=== PATIENT | female | born 1970 | race Caucasian/White ===

== ENCOUNTER 2021-10-16 09:00 | Outpatient (CLI) | payer OTHER, SELFPAY ==
[2021-10-16 14:27] LABS: Chloride* 103 mmol/L (96-114)
[2021-10-16 14:28] LABS: Potassium* 4.3 mmol/L (3.6-5.1); Sodium* 138 mmol/L (135-149)
[2021-10-16 14:30] LABS: Carbon Dioxide* 27 mmol/L (20-32); Creatinine* 0.8 mg/dL (0.5-1.5); Estimated Glomerular Filt Rate 88 ml/min
[2021-10-16 14:31] LABS: Blood Urea Nitrogen* 11 mg/dL (7-30); Glucose* 99 mg/dL (60-115)
== END 2021-10-16 09:01 | disposition home or self-care (01) ==
LOC: LONREF 09:02
PROVIDERS: PCP Family Medicine; Visit Provider Family Medicine
DX: Z01.818 Encounter for other preprocedural examination (principal)
CPT/HCPCS: 80048

== ENCOUNTER 2022-01-09 08:07 | Outpatient (CLI) | payer OTHER, SELFPAY ==
--- OUTSIDE RECORDS SUMMARY | 2022-01-09 08:09 | XMS_ITS | Encounter Summary ---
:1970 Author Care Team Providers Name Role Phone Kobi Zavaleta MD Primary Care Provider [phone] Reason for Visit Incontinence Assessment and Plan 1. Incontinence fu in 2 months on her stress incontinen ce Discussion Note: None recorded.Patient educational handouts: No information available. Plan of Care Reminders Provider Appointments Post Op 10 01/22/2022 10:50AM Robbi sanchez MD Lab None recorded. ? ? Referral None recorded. ? ? Procedures None recorded. ? ? Surgeries None recorded. ? ? Imaging None recorded. ? ? Medications Name Start Date ? ? albuterol sulfate HFA 90 mcg/actuation aerosol inhaler ? INHALE TWO PUFFS BY MOUTH EVERY 6 HOURS NEEDED atorvastatin 10 mg tablet ? TAKE ONE TABLET BY MOUTH AT BEDTIME citalopram 20 mg tablet ? TAKE ONE TABLET BY MOUTH EVERY DAY finasteride 5 mg tablet ? TAKE 1.25MG (1/4 TABLET) BY MOUTH DAILY Flovent HFA 110 mcg/actuation aerosol inhaler ? INHALE TWO PUFFS BY MOUTH TWICE A DAY levothyroxine 100 mcg tablet ? TAKE 1 TABLET BY MOUTH DAILY levothyroxine 112 mcg tablet ? TAKE ONE TABLET BY MOUTH EVERY DAY Norlyda 0.35 mg tablet ? TAKE 1 TABLET BY MOUTH DAILY prednisone 10 mg tablet ? TAKE 4 TABLETS BY MOUTH ONCE DAILY FOR 3 DAYS THEN 3 TABLETS ONCE DAILY FOR 3 DAYS, THEN 2 TABS ONCE DAILY FOR 3 DAYS AND 1 TABLET ONCE DAILY FOR 3 DAYS Medications Administered None recorded. Vitals None recorded. Results Lab Results None recorded. Allergies Code Code System Name Reaction Severity Onset 188937 RxNorm Minocin ? ? ? Problems Name Status Onset Date Source ? Incontinence Active 06/12/2021 ? Procedures Date Name Performed by ? ? Partial Hysterectomy Information not karen ilable Vaccine List None recorded. Social History Tobacco Smoking Status Former Smoker What was the date of your most recent tobacco 11/27/2021 screening? What is your level of alcohol consumption? Moderate Do you or have you ever used any other forms of N tobacco or nicotine? What is your level of caffeine consumption? Moderate Do you use any illicit or recreational drugs? N When did you quit smoking? 16+yearssincelastcigarette Family History Relation Problem Onset Age of Age Notes Unspecified Relation Family history of (No Information) N/A (No Notes) prostate cancer Functional Status Unknown. Past Encounters 11/27/2021 Incontinence Robbi Quarles MD: [address] [place] [phone], Ph. History of Present Illness Note: <div>50 YO Female here for postop evaluation</div><div>S/p retropubic midurethralsling 10/26/21; some urgency; once a day; no pads. </div><div>
</div><div>Prior to surgery</div><div>Frequency every 30- 60</div><div>Using 2-3 pads per day</div><div>
</div><div>s/p supracervical hysterectomy 2006</div><div>
</div><div>former smoker</div><div>
</div><div>PVR is minin </div><div>Pelvic exam is benign</div> Review of Systems ? Comprehensive General Adult ROS Reported By: Patient Constitutional: Constitutional: no fever, no chills Eyes: Eyes: no dry eyes, no vision change, no irritation Endocrine: Endocrine: no fatigue, no in creased thirst Cardiovascular: Cardiovascular: no chest trinidad n, no palpitations Integumentary: Skin: no rashes, no change i n skin color Respiratory: Respiratory: no wheezing, no cough, no shortness of breath Genitourinary: Genitourinary: no incontinen ce, no difficulty urinating Physical Exam None recorded.
--- OUTSIDE RECORDS SUMMARY | 2022-01-09 08:09 | XMS_ITS ---
:1970 Author Care Team Providers Name Role Phone LUIS MURRAY MD Primary Care Provider [phone] Allergies Code Code System Name Reaction Severity Status Onset 325841 RxNorm Minocin ? ? Active ? Medications Name Status Start Date Stop Date ? ? albuterol sulfate HFA 90 mcg/actuation aerosol inhaler Active ? Not available INHALE TWO PUFFS BY MOUTH EVERY 6 HOURS NEEDED atorvastatin 10 mg tablet Active ? Not av ailable TAKE ONE TABLET BY MOUTH AT BEDTIME citalopram 20 mg tablet Active ? Not avai lable TAKE ONE TABLET BY MOUTH EVERY DAY finasteride 5 mg tablet Active ? Not avai lable TAKE 1.25MG (1/4 TABLET) BY MOUTH DAILY Flovent HFA 110 mcg/actuation aerosol inhaler Active ? Not available INHALE TWO PUFFS BY MOUTH TWICE A DAY levothyroxine 100 mcg tablet Active ? Not available TAKE 1 TABLET BY MOUTH DAILY levothyroxine 112 mcg tablet Active ? Not available TAKE ONE TABLET BY MOUTH EVERY DAY Norlyda 0.35 mg tablet Active ? Not avail able TAKE 1 TABLET BY MOUTH DAILY prednisone 10 mg tablet Active ? Not avai lable TAKE 4 TABLETS BY MOUTH ONCE DAILY FOR 3 DAYS THEN 3 TABLETS ONCE DAILY FOR 3 DAYS, THEN 2 TABS ONCE DAILY FOR 3 DAYS AND 1 TABLET ONCE DAILY FOR 3 DAYS Problems Name Status Onset Date Source ? Incontinence Active 06/12/2021 ? Procedures Date Name Performed by ? ? Partial Hysterectomy Information not karen ilable Results Lab Results Date Name Specimen Result Interpretation Description Value Range Status Address ? 06/12/2021 Urinalysis, Dipstick ? Color-Status Yellow ? Clarity-Status Clear ? Glucose-Status 1000 ? Bilirubin-Status Negative ? Ketones-Status Negative ? Sp [place]-Status 1.020 ? pH-Status 5.0 ? Urobilinogen-Status 0.2 ? Nitrates-Status negative ? Blood-Status Trace ? Leuko-Status Negative ? Specimen Type Voided ? ? 06/12/2021 Urinalysis, Dipstick ? No observation ? ? ? recorded. Past Encounters 11/27/2021 Incontinence Robbi Quarles MD: [address] [place] [address], Ph. 06/12/2021 Urinary Incontinence; Female Stress Inco ntinence Robbi Quarles MD: [address] [place] [address], Ph. Social History Tobacco Smoking Status Former Smoker Vaccine List None recorded. Plan of Care Reminders Provider Appointments None recorded. ? ? Lab None recorded. ? ? Referral None recorded. ? ? Procedures None recorded. ? ? Surgeries None recorded. ? ? Imaging None recorded. ? ? Vitals None recorded.
--- NOTE | 2022-01-09 08:15 | CRLHL7_ITS ---
For Patients: As a result of the Century Cures Act, medical imaging exams and procedure reports are released immediately into your electronic medical record. You may view this report before your referring provider. If you have questions, please contact your health care provider. BILATERAL SCREENING MAMMOGRAM WITH COMPUTER-AIDED DETECTION TECHNIQUE: CC and MLO views were obtained. These mammographic images have been obtained using full-field digital technique. These mammographic images were interpreted with the benefit of computer-aided detection. COMPARISON FILM: 11/17/20, 05/29/18, 01/29/16. FINDINGS: The breasts are heterogeneously dense, which may obscure small masses. IMPRESSION: There is no radiographic evidence for malignancy. ASSESSMENT: BI-RADS Category 2: Benign RECOMMENDATION: Routine screening mammogram in 1 year. A lay language report of this examination will be provided to the patient. AMARI SINGER M.D. Diagnostic/Nuclear Medicine Radiologist [email or web address] HWITNEY:collin Transcribed: 2:09 p.mPamela polanco/Dictated by: Amari Singer MD @ 01/09/2022 9:42:00 AM (Electronically Signed)
== END 2022-01-09 08:08 | disposition home or self-care (01) ==
PROVIDERS: PCP Family Medicine; Visit Provider Family Medicine
DX: Z12.31 Encounter for screening mammogram for malignant neoplasm of breast (principal); R92.2 Inconclusive mammogram
CPT/HCPCS: 77063; 77067

== ENCOUNTER 2022-11-27 08:40 | Outpatient (CLI) | payer OTHER, SELFPAY | END 2022-11-27 08:41 | disposition home or self-care (01) | PROVIDERS: PCP Family Medicine; Visit Provider Family Medicine | DX: Z00.00 Encounter for general adult medical examination without abnormal findings (principal); E78.5 Hyperlipidemia, unspecified; E03.9 Hypothyroidism, unspecified; L65.9 Nonscarring hair loss, unspecified; Z13.1 Encounter for screening for diabetes mellitus | CPT/HCPCS: 80048; 80061; 84443 ==

== ENCOUNTER 2023-03-25 15:58 | Outpatient (CLI) | payer OTHER, SELFPAY ==
--- OUTSIDE RECORDS SUMMARY | 2023-03-25 16:02 | XMS_ITS | Clinical Summary ---
Author Name Unknown Organization [facility] Address [place], [place] [address] Care Team Providers Care Thermostat Repairer Name Role Phone Kobi Zavaleta MD Primary Care Provider [phone] Allergies Active Allergy Reactions Criticality Noted Date Comments Minocycline *Unknown 10/26/2021 Medications Medication Sig Dispensed Refills Start Date End Date Status CITALOPRAM 10 MG TAB take 1 tablet (10mg) by oral route once daily 0 06/05/2006 Active CLARINEX 5 MG TAB take 1 tablet (5mg) by oral route once daily 0 06/05/2006 Active ADVAIR DISKUS 100 MCG-50 MCG/DOSE FOR INHALATION inhale 1 puff by inhalation route 2 times per day morning and evening approximately 12 hours apart 0 06/05/2006 Active FLONASE 50 MCG/ACTUATION NASAL SPRAY AEROSOL inhale 1 spray in each nostril by nasal route once daily 0 06/05/2006 Active ALBUTEROL 90 MCG/ACTUATION INHL AERO (ALLSCRIPTS) prn 0 06/05/2006 Active IBUPROFEN 200 MG TAB 600-800 twice day 0 06/05/2006 Active cyclobenzaprine (FLEXERIL) 10 mg tablet Take 1 tablet by mouth 3 times daily. 30 tablet 0 04/15/2014 Active traMADol (ULTRAM) 50 mg tablet Take 1 tablet by mouth every 6 hours if needed for Pain. 30 tablet 1 04/15/2014 Active albuterol (PROVENTIL) 0.083 % neb solutionIndication s:Bronchitis Inhale 3 mL via a nebulizer every 6 hours if needed for Shortness Of Breath. 1 box 0 11/22/2014 Active albuterol HFA (PROAIR HFA) 90 mcg/actuation inhalerIndications :Bronchitis Inhale 2 Puffs by mouth every 4 hours if needed. 1 Inhaler 0 11/22/2014 Active predniSONE (DELTASONE) 20 mg tabletIndications: Bronchitis Take 2 tablets by mouth once daily with a meal. 10 tablet 0 11/22/2014 Active oxyCODONE (ROXICODONE) 5 mg immediate release tablet Take 1 tablet (5mg) by mouth every 8 hours as needed for pain. 18 Tablet 0 10/26/2021 Active cephalexin (KEFLEX) 500 mg capsule Take 1 capsule (500mg) by mouth every 8 hours until gone.(3 doses) 3 Capsule 0 10/26/2021 Active estradioL (Estrace) 0.01% (0.1 mg/g) vaginal cream Use a pea sized amount on finger to Insert into the vagina at bedtime for 1 month. 42.5 g 0 10/26/2021 Active Active Problems Problem Noted Date Diagnosed Date S/P R shoulder extensive GH Debridement, SAD, AC, Coracoid decompression, DOS 11/02/2013 11/12/2013 Impingement syndrome of right shoulder 4 Left shoulder arthroscopic S AD, LUCA joint resectin, coracoid decompression: 09/08/12 by George Osuna MD 12/25/2012 s/p Left shoulder CHELITA, LUCA, CD 09/08/12 09/18/2012 Partial tear of rotator cuff left 07/30/2012 Rotator cuff syndrome of left shoulder 3 Enthesopathy of ankle and tarsus, unspecified Family History Medical History Relation Name Comments Hypertension Brother 3 Hypertension Brother 4 Hyperlipidemia Brother 5 Hyperlipidemia Brother 6 Diabetes Father Other Mother renal failure Relation Name Status Comments Brother 1 Alive Brother 2 Alive Brother 3 Brother 4 Brother 5 Brother 6 Father Alive Mother Alive Social History Tobacco Use Types Packs/Day Years Used Date Smoking Tobacco: Every Day Cigarettes Alcohol Use Standard Drinks/Week Comments Yes 0 (1 standard drink = 0.6 oz pur e alcohol) Sex and Gender Information Value Date Recorded Sex Assigned at Not on file Gender Identity Not on file Sexual Orientation Not on file Obstetrics History Last Filed Vital Signs Vital Sign Reading Time Taken Comments Blood Pressure 118/70 11/22/2014 12:43 PM CDT Pulse 116 11/22/2014 12:43 PM CDT Temperature 36.2 ??C (97.2 ??F) 11/22/2014 12:43 PM C DT Respiratory Rate 24 11/22/2014 12:43 PM CDT Oxygen Saturation 97% 11/22/2014 12:43 PM CDT Inhaled Oxygen Concentration - - Weight 77.1 kg (170 lb) 11/12/2013 8:11 AM CDT Height 154.9 cm (5' 0.98) 11/12/2013 8:11 AM CD T Body Mass Index 32.14 11/12/2013 8:11 AM CDT Plan of Treatment Health Maintenance Due Date Last Done Comments Tdap 10/11/1979 Depression screening for age 12+ 1980 HIV for age 15-65 10/11/1983 BMI (ht and wt on same day) for age 18+ 1986 Hepatitis C screening for ag e 18-79 1986 Tetanus booster 1988 Colonoscopy through age 75 2013 Lipids for age 45-75 2013 Mammogram for age 45-75 2013 Zoster (shingles) series for age 50+ (1 of 2) 2018 Pap test for age 21-65 06/19/2021 9, 06/19/2018, 01/06/2015 COVID-19 vaccine series (2 - 2022- season) 2022 11/08/2020 Influenza for age 50-64 10/11/2022 Pneumococcal series for age 6-64 Aged Out No longer eligible b ased on patient's age to complete this topic Care Teams Thermostat Repairer Relationship Specialty Start Date End Date Kobi Zavaleta MD PCP - General Family Practice 04/03/12
--- OUTSIDE RECORDS SUMMARY | 2023-03-25 16:02 | XMS_ITS | Data Portability ---
Author Name Unknown Address [address] [place] [address] Phone [phone] Organization [facility], [facility] Address [address] [place] [address] Care Team Providers Care Group Burner Machine Name Role Phone LUIS MURRAY Primary Care Provider Assessment No assessment recorded. Plan of Treatment Reminders Order Date Submit Date Provider Last Modified By Organization Details Last Modified Time Details Appointments None recorded. Lab urinalysis, dipstick 2021 022 [email or web address] Not available 09:56:54 Referral None recorded. Procedures None recorded. Surgeries midurethral sling (SURG) 2021 022 [email or web address] Not available 11:28:10 Imaging None recorded. Medication Orders None recorded. Patient TargetsNo targets recorded. Patient InstructionsNo instructions recorded. Reason for Referral None Reported. Results Created Date Observation Date Name Description Value Unit Range Abnormal Flag LastModifiedBy Organization Detail LastModifiedTime 06/13/1906/12/2021 urina lysis , dipst ick Color-Status Yellow Not Available [facility] [address], [place], [address], 06/12/2021 09:56:00 06/13/19 22 06/12/2021 urina lysis , dipst ick Clarity-Stat us Clear Not Available [facility] [address], [place], [address], 06/12/2021 09:56:00 06/13/19 22 06/12/2021 urina lysis , dipst ick Glucose-Stat us 1000 Not Available [facility] [address], [place], [address], 06/12/2021 09:56:00 06/13/19 22 06/12/2021 urina lysis , dipst ick Bilirubin-St atus Negati ve Not Available [facility] [address], [place], [address], 06/12/2021 09:56:00 06/13/19 22 06/12/2021 urina lysis , dipst ick Ketones-Stat us Negati ve Not Available [facility] [address], [place], [address], 06/12/2021 09:56:00 06/13/19 22 06/12/2021 urina lysis , dipst ick Sp Lemhi-Stat us 1.020 Not Available [facility] [address], [place], [address], 06/12/2021 09:56:00 06/13/19 22 06/12/2021 urina lysis , dipst ick pH-Status 5.0 Not Available [facility] [address], [place], [address], 06/12/2021 09:56:00 06/13/19 22 06/12/2021 urina lysis , dipst ick Urobilinogen -Status 0.2 Not Available [facility] [address], [place], [address], 06/12/2021 09:56:00 06/13/19 22 06/12/2021 urina lysis , dipst ick Nitrates-Sta tus negati ve Not Available [facility] [address], [place], [address], 06/12/2021 09:56:00 06/13/19 22 06/12/2021 urina lysis , dipst ick Blood-Status Trace Not Available [facility] [address], [place], [address], 06/12/2021 09:56:00 06/13/19 22 06/12/2021 urina lysis , dipst ick Leuko-Status Negati ve Not Available [facility] [address], [place], [address], 06/12/2021 09:56:00 06/13/19 22 06/12/2021 urina lysis , dipst ick Specimen Type Voided Not Available [facility] [address], [place], [address], 06/12/2021 09:56:00 06/14/19 22 06/12/2021 bladd er scan (PROC ) No observ ation record ed. BARCODE Not Available 06/13/2021 09:01:54 11/29/19 22 11/27/2021 bladd er scan (PROC ) No observ ation record ed. BARCODE Not Available 11/28/2021 14:03:01 Result Notes None recorded. Problems Name Status Onset Date Resolution Date Notes Provider Name and Address Organization Details Recorded Time Incontinence Active Debbie fan [facility] 06/12/2021 10:02:05 Problem Notes None recorded. Procedures Surgical History Date Name Laterality Status Provider Name and Address Organization Details Recorded Time 11/28/19 22 Bladder Scan completed Desiree fan [facility] 11/27/2021 12:04:28 06/13/19 Bladder Scan completed Debbie fan [facility] 06/12/2021 10:03:47 Partial Hysterectomy completed Debbie fan [facility] 06/12/2021 10:03:12 Imaging Results Imaging Date Name Status LastModified by Organiz ation Details LastModified Time 06/12/2021 bladder scan (PROC) completed BARCODE Information not available 06/13/2021 09:01:54 11/27/2021 bladder scan (PROC) completed BARCODE Information not available 11/28/2021 14:03:01 Procedure Notes None recorded. Medical Equipment None Reported. Allergies Allergen ID Allergen Name Allergen Category Reaction Reaction Severity Criticality Documentation Date Start Date Code Code System Note Provider Name and Address Organization Details Recorded Time 601678 Minocin medicatio n Not available Not available Not available 06/12/2021 17646 6 RxNorm Debbie fan [facility] 10:01:56 Medications Name Sig Start Date Stop Date Status Note LastModified by Organization Details LastModified Time prednisone 10 mg tablet TAKE 4 TABLETS BY MOUTH ONCE DAILY FOR 3 DAYS THEN 3 TABLETS ONCE DAILY FOR 3 DAYS, THEN 2 TABS ONCE DAILY FOR 3 DAYS AND 1 TABLET ONCE DAILY FOR 3 DAYS active Not Available Not Available No t Available atorvastatin 10 mg tablet TAKE ONE TABLET BY MOUTH AT BEDTIME active Not Available Not Available No t Available levothyroxine 100 mcg tablet TAKE 1 TABLET BY MOUTH DAILY active Not Available Not Available No t Available citalopram 20 mg tablet TAKE ONE TABLET BY MOUTH EVERY DAY active Not Available Not Available No t Available albuterol sulfate HFA 90 mcg/actuation aerosol inhaler INHALE TWO PUFFS BY MOUTH EVERY 6 HOURS NEEDED active Not Available Not Available No t Available finasteride 5 mg tablet TAKE 1.25MG (1/4 TABLET) BY MOUTH DAILY active Not Available Not Available No t Available levothyroxine 112 mcg tablet TAKE ONE TABLET BY MOUTH EVERY DAY active Not Available Not Available No t Available Flovent HFA 110 mcg/actuation aerosol inhaler INHALE TWO PUFFS BY MOUTH TWICE A DAY active Not Available Not Available No t Available Norlyda 0.35 mg tablet TAKE 1 TABLET BY MOUTH DAILY active Not Available Not Available No t Available Vitals None Recorded Social History Question Answer Notes LastModified by Organizat ion Details LastModified Time Tobacco Smoking Status Former Smoker ENMANUEL Dimas [facility] 06/12/2021 10:02:39 What Is Your Level Of Alcohol Consumption? Moderate [email or web address] Information not available 06/12/2021 What Is Your Level Of Caffeine Consumption? Moderate [email or web address] Information not available 06/12/2021 When Did You Quit Smoking? 16+yearssince lastcigarette [email or web address] Information not available 06/12/2021 What Was The Date Of Your Most Recent Tobacco Screening? 11/27/2021 [email or web address] Information not available 11/27/2021 Do You Use Any Illicit Or Recreational Drugs? No [email or web address] Information not available 06/12/2021 Do You Or Have You Ever Used Any Other Forms Of Tobacco Or Nicotine? No [email or web address] Information not available 06/12/2021 Sex: Female Functional Status None recorded. Mental Status None recorded. Family History Relationship Description Onset Age of this Age Resolved Age Notes Unspecified Relation Family history of prostate cancer Medical History Condition Response Sexually Transmitted Infection N Diabetes N Other N Bleeding Disorder N High Blood Pressure N Kidney Stones N High Cholesterol N GERD/Acid Reflux Y Heart Disease N Cancer N Lung Disease Y Depression Y Gynecological HistoryNo gynecological history recorded. Obstetrics History GPAL:G 0 P 0 0 0 0 Past Encounters Encounter ID Performer Location Encounter Start Date Encounter Closed Date Diagnosis/Indication [id number] MD [facility] [address] [place] [address] 06/12/2021 09:47:04 06/13/2021 11:53:37 Urinary incontinence Female stress incontinence [id number] MD [facility] [address] [place] [address] 11/27/2021 11:53:44 12/03/2021 11:49:58 Incontinence Health Concerns Section Related Observation LastModified by Organization Detai ls LastModified Time None Recorded Concern Status LastModified by Organization Details LastModified Time None Recorded Advance Directives Directive None Recorded Payers Encounter Date Sequence Insurance Name Policy Number Policy Francisco Covered Member ID Francisco Member ID Guarantor Name 11/27/2021 1 PREFERREDONE (PPO) [id number] Svitlana Pham [id number] Svitlana Pham Notes Date Note Type Note Provider Name and Address Organization Details Recorded Time 06/12/2021 text/html HPI Notes: 50 YO Female patient here for evaluation for urinary incontinence. Started in her 30's, after having babies. Vaginal deliveries x2. Leakage with cough, sneeze, standing, jumping, side-shuffling, working out. Also some urge incontinence as well. Some feeling of incomplete voiding at times. No nocturia. No gross hematuria. No issues with recurrent UTIs. The leakage is most bothersome to her. Frequency every 30-60 Using 2-3 pads per day Has not trialed any medications for this. Has tried fluid restrictions, cutting back on caffeine, cutting back on alcohol, kegels-- no improvement. No constipation, diarrhea, fecal incontinence. 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 Robbi Quarles MD [address] [place] [address],[address], [address], [facility] 06/12/2021 13:53:49 11/27/2021 text/html HPI Notes: 50 YO Female here for postop evaluation S/p retropubic midurethral sling 10/26/21; some urgency; once a day; no pads. Prior to surgery Frequency every 30-60 Using 2-3 pads per day s/p supracervical hysterectomy 2006 former smoker PVR is minin Pelvic exam is benign oRbbi Quarles MD [address] [place] [address],[address], [place], [address], [facility] 11/27/2021 12:16:19 OBGyn Episode No OBEpisode recorded.
--- NOTE | 2023-03-25 16:45 | CT_ITS ---
Patient: TEMO CROW Facility:?[facility] Patient ID:?[id number] Site Patient ID:?[id number] Site :?[id number] Study:?CT-Sinus W/O-03/25/2023 4:17:07 PM Ordering Physician:?JACQUELINE Final Report: Indication: Chronic sinus disease Technique: Performed without IV contrast Comparison: None available Findings: Frontal sinuses: The frontal sinuses are diminutive on a congenital basis. Ethmoid sinuses: Postop changes of ethmoidectomy noted. Maxillary sinuses: Mucosal thickening is present within both maxillary sinuses. The maxillary sinus drainage pathways are patent on both sides. Sphenoid sinuses: Clear, including both sphenoethmoidal recesses. Nasal Cavity: Leftward curvature of the nasal septum is present. There are no nasal polyps. Postop changes are present. Slight paradoxical turn of the right middle turbinate. No TMJ abnormalities identified. The visualized portions of the orbits, intracranial contents and upper soft tissue neck are grossly negative. Impression: 1. Mild bilateral maxillary sinus disease 2. Postoperative changes. Leftward deviation of the nasal septum. No nasal polyps. Please note that all CT scans at this facility use dose modulation, iterative reconstruction, and/or weight-based dosing when appropriate to reduce radiation dose to as low as reasonably achievable. Dictated by Manolo Higuera MD @ 03/28/2023 5:59:07 AM Signed by:?Manolo Higuera MD @03/28/2023 5:59:07 AM (Electronic Signature)
== END 2023-03-25 15:59 | disposition home or self-care (01) ==
LOC: CT 15:59
PROVIDERS: PCP Family Medicine; Visit Provider Otolaryngology
DX: J32.9 Chronic sinusitis, unspecified (principal); J32.0 Chronic maxillary sinusitis; J34.2 Deviated nasal septum
CPT/HCPCS: 70486

== ENCOUNTER 2023-04-09 14:38 | Outpatient (CLI) | payer OTHER, SELFPAY ==
--- NOTE | 2023-04-09 15:00 | MM_ITS ---
Patient: TEMO CROW Facility:?[facility] Patient ID:?[id number] Site Patient ID:?[id number] Site :?1970 Study:?XRay-Breast Bilateral 3D W/CAD-04/09/2023 3:01:02 PM Ordering Physician:?Kobi Zavaleta Final Report: BILATERAL SCREENING MAMMOGRAM WITH COMPUTER-AIDED DETECTION AND TOMOSYNTHESIS TECHNIQUE: CC and MLO views were obtained. These mammographic images have been obtained using full-field digital technique. These mammographic images were interpreted with the benefit of computer-aided detection. Breast Tomosynthesis was used in this interpretation. COMPARISON FILM: 01/09/22, 11/17/20, 05/29/18. FINDINGS: The breasts are heterogeneously dense, which may obscure small masses. IMPRESSION: There is no radiographic evidence for malignancy. ASSESSMENT: BI-RADS Category 2: Benign RECOMMENDATION: Routine screening mammogram in 1 year. A lay language report of this examination will be provided to the patient. Manolo Higuera M.D. Diagnostic Radiologist [email or web address] DSM/sp R& Transcribed: 6:32 p.m. SP/Dictated by: Manolo Higuera MD @ 04/10/2023 9:48:00 AM Signed by:?Manolo Higuera MD @04/11/2023 5:37:15 AM (Electronic Signature)
== END 2023-04-09 14:39 | disposition home or self-care (01) ==
LOC: MAMMO 14:39
PROVIDERS: PCP Family Medicine; Visit Provider Family Medicine
DX: Z12.31 Encounter for screening mammogram for malignant neoplasm of breast (principal); R92.2 Inconclusive mammogram
CPT/HCPCS: 77063; 77067

== ENCOUNTER 2023-05-20 19:43 | Outpatient (CLI) | payer OTHER, SELFPAY ==
--- OUTSIDE RECORDS SUMMARY | 2023-05-20 19:45 | XMS_ITS | Data Portability ---
Author Name Unknown Address [address] [place] [address] Phone [phone] Organization [facility], [facility] Address [address] [place] [address] Care Team Providers Care Power Grader Operator Name Role Phone LUIS MURRAY Primary Care Provider [phone] Assessment No assessment recorded. Plan of Treatment Reminders Order Date Submit Date Provider Last Modified By Organization Details Last Modified Time Details Appointments None recorded. Lab urinalysis, dipstick 2021 022 [email or web address] Not available 09:56:54 Referral None recorded. Procedures [...] dipst ick Color-Status Yellow Not Available [facility] [address], [place], [address], 06/12/2021 09:56:00 06/13/19 22 06/12/2021 urina lysis , dipst ick Clarity-Stat us Clear Not Available [facility] [address], [place], [address], 06/12/2021 09:56:00 06/13/19 22 06/12/2021 urina lysis , dipst ick Glucose-Stat us 1000 Not Available [facility] [address], [place], [address], 06/12/2021 09:56:00 06/13/19 22 06/12/2021 urina lysis , dipst ick Bilirubin-St atus Negati ve Not Available [facility] [address], [place], [address], 06/12/2021 09:56:00 06/13/19 22 06/12/2021 urina lysis , dipst ick Ketones-Stat us Negati ve Not Available [facility] [address], [place], [address], 06/12/2021 09:56:00 06/13/19 22 06/12/2021 urina lysis , dipst ick Sp Nickerson-Stat us 1.020 Not Available [facility] [address], [place], [address], 06/12/2021 09:56:00 06/13/19 22 06/12/2021 urina lysis , dipst ick pH-Status 5.0 Not Available [facility] [address], [place], [address], 06/12/2021 09:56:00 06/13/19 22 06/12/2021 urina lysis , dipst ick Urobilinogen -Status 0.2 Not Available [facility] [address], [place], [address], 06/12/2021 09:56:00 06/13/19 22 06/12/2021 urina lysis , dipst ick Nitrates-Sta tus negati ve Not Available [facility] [address], [place], [address], 06/12/2021 09:56:00 06/13/19 22 06/12/2021 urina lysis , dipst ick Blood-Status Trace Not Available [facility] [address], [place], [address], 06/12/2021 09:56:00 06/13/19 22 06/12/2021 urina lysis , dipst ick Leuko-Status Negati ve Not Available [facility] [address], [place], [address], 06/12/2021 09:56:00 06/13/19 22 06/12/2021 urina lysis , dipst ick Specimen Type Voided Not Available [facility] [address], [place], [address], 06/12/2021 09:56:00 06/14/19 22 06/12/2021 bladd er scan (PROC ) No observ ation record ed. BARCODE Not Available 06/13/2021 09:01:54 11/29/19 22 11/27/2021 bladd er scan (PROC ) No observ ation record ed. BARCODE Not Available 11/28/2021 14:03:01 Result Notes None recorded. Problems Name Status Onset Date Resolution Date Notes Provider Name and Address Organization Details Recorded Time Incontinence Active Debbie fan [facility] 06/12/2021 10:02:05 Problem Notes None recorded. Procedures Surgical History Date Name Laterality Status Provider Name and Address Organization Details Recorded Time 11/28/19 22 Bladder [facility] 11/27/2021 12:04:28 06/13/19 Bladder Scan completed Debbie fan [facility] 06/12/2021 10:03:47 Partial Hysterectomy completed Debbie fan [facility] 06/12/2021 10:03:12 Imaging Results Imaging Date Name [...] Name and Address Organization Details Recorded Time 362653 Minocin medicatio n Not available Not available Not available 06/12/2021 88138 6 RxNorm Debbie fan [facility] 10:01:56 Medications Name Sig Start Date [...] Tobacco Smoking Status Former Smoker ENMANUEL Dimas [facility] 06/12/2021 10:02:39 What Is Your Level Of Alcohol Consumption? Moderate [email or web address] Information not available 06/12/2021 What Is Your Level Of Caffeine Consumption? Moderate [email or web address] Information not available 06/12/2021 When Did You Quit Smoking? 16+yearssince lastcigarette [email or web address] Information not available 06/12/2021 What Was The Date Of Your Most Recent Tobacco Screening? 11/27/2021 [email or web address] Information not available 11/27/2021 Do You Use Any Illicit Or Recreational Drugs? No [email or web address] Information not available 06/12/2021 Do You Or Have You Ever Used Any Other Forms Of Tobacco Or Nicotine? No [email or web address] Information not available 06/12/2021 Sex: Female Functional Status None recorded. Mental Status None recorded. Family History Relationship Description Onset Age of this Age Resolved Age Notes Unspecified Relation Family history of prostate cancer Medical History Condition Response Other N High Blood Pressure N Kidney Stones N Depression Y Lung Disease Y GERD/Acid Reflux Y Sexually Transmitted Infection N Cancer N High Cholesterol N Diabetes N Bleeding Disorder N Heart Disease N Gynecological HistoryNo gynecological history recorded. Obstetrics History GPAL:G 0 P 0 0 0 0 Past Encounters Encounter ID Performer Location Encounter Start Date Encounter Closed Date Diagnosis/Indication Diagnosis SNOMED-CT Code [id number] MD [facility] [address] [place] [id number] 06/12/2021 09:47:04 06/13/2021 11:53:37 Urinary incontinence [id number] Female str ess incontinence [id number] MD [facility] [address] [place] [id number] 11/27/2021 11:53:44 12/03/2021 11:49:58 Incontinence [id number] Health Concerns Section Related Observation LastModified by Organization Detai ls LastModified Time None Recorded Concern Status LastModified by Organization Details LastModified Time None Recorded Advance Directives Directive None Recorded Payers Encounter Date Sequence Insurance Name Policy Number Policy Francisco Covered Member ID Francisco Member ID Guarantor Name 11/27/2021 1 PREFERREDONE (PPO) [id number] Svitlana Pham [id number] Svitlana Pham Notes Date Note Type Note [...] test on empty bladder. Robbi Quarles MD [address] [place] [address],[address], [address], [facility] 06/12/2021 13:53:49 11/27/2021 text/html HPI Notes: 50 YO Female here for postop evaluation S/p retropubic midurethral sling 10/26/21; some urgency; once a day; no pads. Prior to surgery Frequency every 30-60 Using 2-3 pads per day s/p supracervical hysterectomy 2006 former smoker PVR is minin Pelvic exam is benign Robbi Quarles MD [address] [place] [address],[address], [place], [address], [facility] 11/27/2021 12:16:19 OBGyn Episode No OBEpisode recorded.
--- OUTSIDE RECORDS SUMMARY | 2023-05-20 19:45 | XMS_ITS | Clinical Summary ---
Author Name Unknown Organization [facility] Address [place], [place] [address] Care Team Providers Care Hogshead Filler Name Role Phone Kobi Zavaleta MD Primary Care Provider [phone] Allergies Active Allergy Reactions Criticality Noted Date [...] hours as needed for pain. 18 Tablet 10/26/2021 Active cephalexin (KEFLEX) 500 mg capsule Take 1 capsule (500mg) by mouth every 8 hours until gone.(3 doses) 3 Capsule 10/26/2021 Active estradioL (Estrace) 0.01% (0.1 mg/g) vaginal cream Use a pea sized amount on finger to Insert into the vagina at bedtime for 1 month. 42.5 g 10/26/2021 Active Active Problems Problem Noted Date Diagnosed Date S/P R shoulder extensive GH Debridement, SAD, AC, Coracoid decompression, DOS 11/02/2013 11/12/2013 Impingement syndrome of right shoulder 4 Left shoulder arthroscopic S AD, AC joint resectin, coracoid decompression: 09/08/12 by George Osuna MD 12/25/2012 s/p Left shoulder SAD, AC, CD 09/08/12 09/18/2012 Partial tear of rotator [...] 06/19/2021 9, 06/19/2018, 01/06/2015 COVID-19 vaccine series (2022-24 season) 2022 11/08/2020 Influenza for age 50-64 10/12/2023 Pneumococcal series for age 6-64 Aged Out No longer eligible b ased on patient's age to complete this topic Procedures Procedure Name Priority Date/Time Associated Diagnosis Comments CAN PATCHER THIN PREP PAP SCREEN IMAGED Routine 06/19/2018 8:30 AM CDT from Last 3 Months or Most Recently Relevant to Health Maintenance Results * CAN PATCHER THIN PREP PAP SCREEN IMAGED (06/19/2018 8:30 AM CDT) Case Report Gynecologic Cytology Report ? Case: [id number] ? Authorizing Provider: ??Kobi Zavaleta MD ? Collected: ? 06/19/2018 0830 ? Ordering Location: ? [facility] ?Received: ?06/19/2018 1740 ? First Screen: ?Hodan Rodríguez ? Specimen: ?CAN PATCHER ThinPrep Vial Screening, Cervical/Vaginal ? 06/29/2018 2:03 PM CDT [facility] INTERPRETATION/ RESULT NEGATIVE FOR INTRAEPITHELIAL LESION OR MALIGNANCY (NIL) (none) 06/29/2018 2:03 PM CDT [facility] IMEN ADEQUACY Satisfactory for evaluation No endocervical component seen 06/29/2018 2:03 PM CDT [facility] HPV REQUEST HPV and PAP 06/29/2018 2:03 PM CDT [facility] Last Pap Date 01/06/2015 06/29/2018 2:03 PM CDT [facility] Comment:NORMAL Menstrual Status 06/29/2018 2:03 PM CDT [facility] Comment:N/A Automated Review Successful 06/29/2018 2:03 PM CDT [facility] Comment:Specimen processed s uccessfully by automated online marketing analyst device, ThinPrep Imaging System, [employer] ANCILLARY TESTING CAN PATCHER HPV Ordered, Please see separate report 06/29/2018 2:03 PM CDT [facility] Note The pap test is a screening technique, not a diagnostic procedure. ??It is used primarily to screen for squamous cancers and precursor lesions. ??Published studies have shown that it is subject to both false negative and false positive results. ??The pap test should not be used as the sole means to diagnose or exclude pre-malignant and malignant lesions. Cytology is screened and interpreted at [facility] - [address], [place] [address] and [facility] - [address]; [place] [address] and [facility] - [address]; [place] [address] and [facility] [address]; [place] [address] 06/29/2018 2:03 PM CDT [facility] Other (Cervical/Vagina l) 06/19/2018 8:30 AM CDT 06/19/2018 5:40 PM CDT Kobi Zavaleta MD PATHOLOGY/CYTOLOGY [facility] [address] [place] [address], from Last 3 Months or Most Recently Relevant to Health Maintenance Care Teams Hogshead Filler Relationship Specialty Start Date End Date Kobi Zavaleta MD PCP - General Family Practice 04/03/12
--- NOTE | 2023-05-28 09:08 | W.PM.SLEEP ---
Sleep Study Details Details Interpreting Provider: Luis Armando Date of Sleep Study: 05/20/23 Sleep Study Details: STUDY TYPE:? Home unattended BMI:? 40.2 ORDERING PROVIDER:? Luis Armando INDICATION:? Concerns about sleep apnea ? SLEEP SUMMARY:? 496.5 minutes monitored RESPIRATORY SUMMARY:? AHI 13.3, supine AHI 81.4 Low oxygen 85 1.1% of study oxygen less than 90% Snoring 93.7% PERIODIC LIMB MOVEMENTS OF SLEEP:? Not recorded CARDIAC:? Range 66-103, mean 79 IMPRESSION:? Mild obstructive sleep apnea overall with severe apnea in the supine position and apnea present in the right lateral position and borderline in the left lateral position RECOMMENDATION: Treatment options would include weight loss, AutoSet CPAP or dental appliance.
== END 2023-05-20 19:44 | disposition home or self-care (01) ==
LOC: SLEEP 19:43
PROVIDERS: PCP Family Medicine; Visit Provider Otolaryngology
DX: G47.33 Obstructive sleep apnea (adult) (pediatric) (principal)
CPT/HCPCS: 95806

== ENCOUNTER 2023-09-29 16:26 | Outpatient (CLI) | payer OTHER, SELFPAY ==
--- NOTE | 2023-09-29 16:30 | CRLHL7_ITS ---
For Patients: As a result of the Century Cures Act, medical imaging exams and procedure reports are released immediately into your electronic medical record. You may view this report before your referring provider. If you have questions, please contact your health care provider. EXAM: MRI OF THE RIGHT KNEE, WITHOUT CONTRAST CLINICAL INDICATION: Knee pain. PRIOR SURGERY: None reported. COMPARISON PLAIN FILMS: 16 September 2023 COMPARISON CROSS-SECTIONAL IMAGING STUDIES: None available at time of interpretation. TECHNICAL: Axial, sagittal and coronal T1, PD, PD FS and T2 FS images. 1.5 Elsy MR scanner. Knee coil. FINDINGS: OSSEOUS STRUCTURES: No fracture, marrow edema or marrow replacement process. JOINT SPACE AND CAPSULE: Effusion: Small effusion. No synovitis. Joint Bodies: None seen. CRUCIATE LIGAMENTS: Anterior Cruciate Ligament: Normal. Posterior Cruciate Ligament: Normal. EXTENSOR MECHANISM: Distal Quadriceps Tendon: Normal. Patellar Tendon: Normal. Medial Patellar Retinaculum and Medial Patellofemoral Ligament: Normal. Lateral Patellar Retinaculum: Normal. Normal patellar alignment. No patella feliberto. Normal trochlear depth. Normal lateral trochlear inclination. MEDIAL COLLATERAL LIGAMENT AND POSTEROMEDIAL CORNER COMPLEX: Medial Collateral Ligament: Normal. Medial Head of the Gastrocnemius and Semimembranosus Tendons: Normal. LATERAL COLLATERAL LIGAMENT COMPLEX AND POSTEROLATERAL CORNER COMPLEX: Fibular Collateral Ligament: Normal. Distal Biceps Femoris Tendon Complex: Normal. Iliotibial Band: Normal. Popliteus Tendon: Normal. Posterolateral Corner Capsule: Normal. MEDIAL COMPARTMENT: Medial Meniscus: Oblique longitudinal tear in the inner 3rd of the posterior horn extending from inferior articular surface to the peripheral superior articular surface sparing the root. No internal flap. Extrusion of body and anterior horn. Minor fraying of the free margin in the extruded body. Articular Cartilage: Fairly high-grade 2 uniform thinning in the central weight-bearing medial condyle. Tiny marginal osteophytes. LATERAL COMPARTMENT: Lateral Meniscus: Normal size and morphology without tear. Articular Cartilage: Articular surfaces appear smooth without focal articular cartilage defect or subchondral marrow changes. PATELLOFEMORAL COMPARTMENT: Articular Cartilage: Shallow grade 2 thinning and heterogeneous signal for grade 1 chondromalacia in the patella. Trochlear cartilage is uniform. PERIARTICULAR SOFT TISSUES: Popliteal Cyst: No significant popliteal cyst. Periarticular Cysts or Ganglia: None. Bursae: No prepatellar, superficial infrapatellar, deep infrapatellar, pes anserinus or semimembranosus/MCL bursitis. Musculature: No muscle atrophy or muscle edema. Subcutaneous and Soft Tissues: No subcutaneous or soft tissue mass, edema or fluid collection. Neurovascular Structures: Normal. IMPRESSION: 1. Medial meniscal tear. 2. 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 3. Small bland joint effusion. Dictated by Henok Wells MD @ 09/30/2023 9:36:13 AM (Electronically Signed)
== END 2023-09-29 16:27 | disposition home or self-care (01) ==
LOC: MRI 16:27
PROVIDERS: PCP Family Medicine; Visit Provider Family Medicine
DX: M25.561 Pain in right knee (principal); S89.91XA Unspecified injury of right lower leg, initial encounter; S83.241A Other tear of medial meniscus, current injury, right knee, initial encounter; M22.41 Chondromalacia patellae, right knee; M25.461 Effusion, right knee
CPT/HCPCS: 73721

== ENCOUNTER 2023-10-24 10:05 | Outpatient (CLI) | payer OTHER, SELFPAY | END 2023-10-24 10:06 | disposition home or self-care (01) | PROVIDERS: PCP Family Medicine; Visit Provider Family Medicine | DX: E03.9 Hypothyroidism, unspecified (principal); E78.5 Hyperlipidemia, unspecified | CPT/HCPCS: 80048; 84443 ==

== ENCOUNTER 2023-10-28 06:29 | Day surgery (SDC) | payer OTHER, SELFPAY ==
[2023-10-28] VITALS (14 sets, daily range): BP systolic 97–132; BP diastolic 61–85; PULSE 65–84; RESP 14–16; TEMP 36.4–36.8; O2SAT 91–99; BMI 40.2
[2023-10-28] MEDS: LACTATED RINGERS 1000 ML 1,000 ML 100 ML IV (08:00)
[2023-10-28] MEDS: CEFAZOLIN 2 GM INJ IVP (09:35)
--- NOTE | 2023-10-28 10:15 | SUR.OPER ---
PATIENT QUESTIONS ANSWERED SATISFACTORILY PREOPERATIVELY.? PATIENT BROUGHT TO OR #1 PER CART.? Patient positioned supine on OR #1 bed.? The perioperative?team supported arms bilaterally on arm boards.? Final approval of positioning by surgeon.? CONTINUOUS IRRIGATION OF THE RIGHT KNEE DURING THE PROCEDURE WITH NACL.
--- NOTE | 2023-10-28 10:32 | P.ORPRC_ITS ---
Procedure Note Date of procedure: 10/28/23 Procedure: PREOPERATIVE DIAGNOSIS: Right knee medial meniscus root tear POSTOPERATIVE DIAGNOSIS: Right knee medial meniscus root tear NAME OF OPERATION: Right knee arthroscopic medial meniscus root repair, microfracture of the notch SURGEON: Wan Miller MD STANDARD MACHINE STITCHER: CHARLENE Chiu ANESTHESIA: Spinal ESTIMATED BLOOD LOSS: 0 mL COMPLICATIONS: None SPECIMENS: None DRAINS: None PREOPERATIVE ANTIBIOTICS: Ancef 2 gram INDICATIONS: The patient is a 53-year-old female with a history of right knee medial pain. MRI scan is consistent with a medial meniscus root tear. Despite appropriate nonoperative management, including activity modification, antiinflammatories, [id number] pain medication, bracing, physical therapy, and injections they continue to have pain and disability. Operative intervention was offered. The risks, benefits and expected outcomes were discussed in detail. These included but were not limited to: Infection, bleeding, injury to blood vessel or nerve, venous thromboembolism. All questions were answered to their satisfaction. PROCEDURE: Spinal anesthesia was administered. The patient was placed supine on the operating room table. The right lower extremity was prepped and draped in the usual sterile fashion. The limb was exsanguinated with the Apolinar bandage. The pneumatic tourniquet was inflated to 300 mmHg. A standard anterolateral portal was established. The arthroscope was introduced. The working portal was established anteromedially. Diagnostic arthroscopy was performed with findings as follows: The suprapatellar pouch is normal. Articular surface on the patella is normal. Articular surface on the trochlea is normal. The medial gutter is normal. The medial compartment shows diffuse grade 3 change on the medial femoral condyle, grade 2 change on the medial tibial plateau. The medial meniscus has a radial tear from the leading edge to the capsule, just off the posterior tibial attachment (medial meniscus root tear). The notch shows the ACL to be intact. The lateral compartment shows normal articular cartilage on the lateral femoral condyle and lateral tibial plateau. The lateral meniscus is normal. The lateral gutter is normal. The stump of the medial meniscus still attached to the tibia was left intact. This was used to pharmacy technician instructor our tunnel placement. Unstable chondral flaps on the medial femoral condyle were debrided with a shaver, taken to a stable base. The medial compartment is quite tight. It was difficult to visualize the posterior horn. Therefore, the MCL was pie crusted with the spinal needle. The knee scorpion was used to pass a fiber link x 2 in the posterior horn of the medial meniscus. The tibial drill guide was used over the footprint of the root. A longitudinal incision over the anteromedial face of the tibia was placed. The flip cutter was drilled into the footprint. The flip cutter was flipped and back cut 10 mm. It was removed and exchanged for a fiber stick. The fiber stick was brought out the anteromedial portal and was used to shuttle both of the fiber link luggage tag sutures on the posterior horn out the anteromedial tibia. We then tensioned the sutures and fixed them to the tibia with a SwiveLock anchor. This provided an excellent repair of the posterior tibial attachment of the medial meniscus to its anatomic footprint. To stimulate healing of the meniscus, the power pick was used to microfracture the notch both medially and laterally. Arthroscopic instruments were removed, the portal sites were Steri-Stripped closed, the incision over the tibia was closed with 3-0 Vicryl and 4-0 Monocryl. A dry dressing was applied, the tourniquet was released. Sponge and needle counts were correct x 2. The patient tolerated the procedure well. There were no apparent complications. They were carefully transferred to the hospital bed and taken to the postanesthesia care unit in satisfactory condition. PLAN: The patient will be discharged to home. They will be strict nonwei ghtbearing on the lower extremity for 6 weeks postoperatively. Range of motion will be allowed from 0-90 degrees x 2 weeks then unrestricted range of motion. They will follow up in 1-2 weeks for a wound check.
--- NOTE | 2023-10-28 10:44 | P.NB_ITS ---
Nerve Block Nerve Block Time Seen by Provider: 10:35 Date Seen: 10/28/23 Type of block requested by surgeon for post-operative analgesia: geniculars Side: right Time out performed: Yes Verification of patient name: Yes Verification of date of : Yes Site marking: site marked Name of person performing procedure: Rishi Continuous monitoring Was continuous monitoring of O2 sat, B/P, potline monitor, recorded every 15 minutes?: Yes Procedure Checklist: sterile prep, needles and gloves Medications given in 5ml increments after negative aspiration: Ropivicaine %: 0.5 mL: 9 Needle gauge: 25 Patient tolerated procedure well: Yes Block Charges Block Charge (with Pro Fee): Genicular Nerve Block Use of Ultrasound Machine for Block: No
--- NOTE | 2023-10-28 10:44 | W.ANESCHARGE ---
Anesthesia Charges Start Date/Time Anesthesia Start Date: 10/28/23 Anesthesia Start Time: 09:14 Stop Date/Time Anesthesia Stop Date: 10/28/23 Anesthesia Stop Time: 10:50
--- NOTE | 2023-10-28 10:59 | W.ANESCHARGE ---
Anesthesia Charges Start Date/Time Anesthesia Start Date: 10/28/23 Anesthesia Start Time: 09:14 Stop Date/Time Anesthesia Stop Date: 10/28/23 Anesthesia Stop Time: 10:50
[2023-10-28] MEDS: HYDROmorphone 0.5 mg/0.5 ml inj IVP (11:04)
[2023-10-28] MEDS: OxyCODONE/APAP 5-325 TABLET 2 TAB PO ×2 (11:50)
== END 2023-10-28 12:45 | disposition home or self-care (01) ==
LOC: OR 06:31
PROVIDERS: PCP Family Medicine; Visit Provider Orthopaedic Surgery
PROC: (CPT 29870; principal; 2023-10-28 09:15)
DX: S83.241A Other tear of medial meniscus, current injury, right knee, initial encounter (principal); G89.18 Other acute postprocedural pain
CPT/HCPCS: 29882; 29879; 01400; 64454; 97116; 97161; A9270; C1713; J0690; J1100; J1170; J1885; J2250; J2704; J2795; J3010; J3490; J7120

== ENCOUNTER 2024-03-10 08:12 | Outpatient (CLI) | payer BC, SELFPAY | END 2024-03-10 08:13 | disposition home or self-care (01) | LOC: NFLDREF 03-15 02:42 | PROVIDERS: PCP Family Medicine; Referring Provider Family Medicine; Visit Provider Family Medicine | DX: E78.2 Mixed hyperlipidemia (principal) | CPT/HCPCS: 80061 ==

== ENCOUNTER 2024-10-15 14:28 | Day surgery (SDC) | payer BC, OTHER, SELFPAY ==
[2024-10-15] VITALS (12 sets, daily range): BP systolic 123–154; BP diastolic 73–91; PULSE 115–119; RESP 16–24; TEMP 36.3–37.7; O2SAT 96–98; BMI 39.2
--- OUTSIDE RECORDS SUMMARY | 2024-10-15 14:32 | XMS_ITS | Clinical Summary ---
Author Organization [facility] Address [address] [place] [address] Care Team Providers Care Drapery Hemmer Automatic Name Role Phone Kobi Zavaleta MD Primary Care Provider [phone] Allergies Active Allergy Reactions Criticality Noted Date Comments Minocycline *Unknown,Contact Dermatitis 022 Medications CLARINEX 5 MG TAB take 1 tablet (5mg) by oral route once daily 0 06/06/19 07 Active ADVAIR DISKUS 100 MCG-50 MCG/DOSE FOR INHALATION inhale 1 puff by inhalation route 2 times per day morning and evening approximately 12 hours apart 0 06/06/19 07 Active FLONASE 50 MCG/ACTUATION NASAL SPRAY AEROSOL inhale 1 spray in each nostril by nasal route once daily 0 06/06/19 07 Active ALBUTEROL 90 MCG/ACTUATION INHL AERO (ALLSCRIPTS) prn 0 06/06/19 07 Active IBUPROFEN 200 MG TAB 600-800 twice day 0 06/06/19 07 Active cyclobenzaprine (FLEXERIL) 10 mg tablet Take 1 tablet by mouth 3 times daily. 30 tablet 0 04/16/19 15 Active traMADol (ULTRAM) 50 mg tablet Take 1 tablet by mouth every 6 hours if needed for Pain. 30 tablet 1 04/16/19 15 Active albuterol (PROVENTIL) 0.083 % neb solutionIndication s:Bronchitis Inhale 3 mL via a nebulizer every 6 hours if needed for Shortness Of Breath. 1 box 0 11/23/19 15 Active albuterol HFA (PROAIR HFA) 90 mcg/actuation inhalerIndications :Bronchitis Inhale 2 Puffs by mouth every 4 hours if needed. 1 Inhaler 0 11/23/19 15 Active predniSONE (DELTASONE) 20 mg tabletIndications: Bronchitis Take 2 tablets by mouth once daily with a meal. 10 tablet 0 11/23/19 15 Active Additional Information Patient taking differently: 20 mgOral DAILY WITH MEAL,PRN, Reported on 10/15/2024 oxyCODONE (ROXICODONE) 5 mg immediate release tablet Take 1 tablet (5mg) by mouth every 8 hours as needed for pain. 18 Tablet 2 3:59 PM CDT 10/27/19 22 Active cephalexin (KEFLEX) 500 mg capsule Take 1 capsule (500mg) by mouth every 8 hours until gone.(3 doses) 3 Capsule 2 3:59 PM CDT 10/27/19 Active estradioL (Estrace) 0.01% (0.1 mg/g) vaginal cream Use a pea sized amount on finger to Insert into the vagina at bedtime for 1 month. 42.5 g 2 3:59 PM CDT 10/27/19 22 Active atorvastatin (LIPITOR) 10 mg tablet Take 1 Tablet (10 mg) by mouth at bedtime. 90 Tablet 3 5 12:21 PM CDT 06/05/19 25 Active citalopram (CELEXA) 20 mg tablet Take 1 Tablet (20 mg) by mouth once daily. 90 Tablet 3 5 12:21 PM CDT 06/05/19 25 Active estradioL (ESTRACE) 1 mg tablet Take 1 Tablet (1 mg) by mouth once daily. 90 Tablet 3 5 3:27 PM CDT 06/05/19 25 Active levothyroxine (SYNTHROID) 112 mcg tablet Take 1 Tablet (112 mcg) by mouth once daily. 90 Tablet 2 5 3:27 PM CDT 06/05/19 25 Active montelukast (SINGULAIR) 10 mg tablet Take 1 Tablet (10 mg) by mouth at bedtime. 90 Tablet 3 5 12:21 PM CDT 06/05/19 25 Active Phentermine HCl 30 mg capsule Take 1 Capsule (30 mg) by mouth once daily. Must administer 2 hours after breakfast 30 Capsule 2 5 10:03 AM CDT 06/05/19 25 Active minoxidiL (LONITEN) 2.5 mg tab Take 1/4 tablet by mouth once daily for 2 weeks and If well tolerated increase to 1/4 twice daily. 30 Tablet 11 5 1:54 PM CDT 06/15/19 25 Active fluorometholone (FML Liquifilm) 0.1 % ophthalmic suspensionIndicati ons:Allergic conjunctivitis of both eyes,Dry eye syndrome of both eyes Place 1 Drop into right eye four times daily for 7 days. 5 mL 5 3:27 PM CDT 09/10/19 25 025 Active Problems Problem Noted Date Diagnosed Date [...] 3 Enthesopathy of ankle and tarsus, unspecified Encounters Date Type Department Care Team Description 10/15/2024 12:30 PM CDT Hospital Encounter [facility] [address] [place] [address] Marina Martins NP Abdominal pain, RLQ (right lower quadrant) 10/15/2024 12:00 PM CDT Office Visit [facility] [address] [place] [address] Marina Martins NP Abdominal Pain (RLQ pain started last night at 8pm. Pain has not let up or moved. HX of ovary cyst rupture. ) 10/15/2024 Travel 09/17/2024 Telephone [facility] [address] [place] [address] Jessica Gastelum, OD eye symptoms 09/09/2024 2:40 PM CDT Office Visit [facility] [address] [place] [address] Jessica Gastelum, OD Eye Problem from Last 3 Months Family History Medical History Relation Name Comments [...] drink = 0.6 oz pur e alcohol) Social Connections Answer Date Recorded Do you often feel lonely or isolated from those around you? 0 10/15/2024 Financial Resource Strain Answer Date R ecorded Difficulty of Paying Living Expenses 3 10/15/2024 Difficulty of Paying Living Expenses Not on file 10/15/2024 Food Insecurity Answer Date Recorded Do you worry your food will run out before you are able to buy more? 1 10/15/2024 Transportation Needs Answer Date Record ed Does lack of transportation keep you from medica l appointments? 1 10/15/2024 Does lack of transportation keep you from work, meetings or getting things that you need? 1 10/15/2024 Housing Stability Answer Date Recorded What is your housing situation today? 1 10/15/2024 Utilities Answer Date Recorded Do you have trouble paying f or utilities (for example, heat, electricity, water, phone)? 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 Gender Identity Not on file Sexual Orientation Not on file Occupation Industry Job Start Date Job End Date Not on file Not on file Not on file Not on file Not on file Not on file Not on file Not on file Obstetrics History Last Filed Vital Signs Vital Sign Reading Time Taken Comments Blood Pressure 133/75 10/15/2024 12:03 PM CDT Pulse 102 10/15/2024 12:03 PM CDT Temperature 36.6 C (97.8 F) 10/15/2024 12:03 PM CDT Respiratory Rate 18 10/15/2024 12:03 PM CDT Oxygen Saturation 96% 10/15/2024 12:03 PM CDT Inhaled Oxygen Concentration - - Weight 94.8 kg (209 lb) 10/15/2024 12:03 PM CDT Height 154.9 cm (5' 0.98) 11/12/2013 8:11 AM CD T Body Mass Index - - Plan of Treatment Health Maintenance Due Date Last Done Comments Tetanus booster 10/11/1979 Depression screening for age 12+ 1980 HIV for age 15-65 10/11/1983 BMI (ht and wt on same day) for age 18+ 1986 Hepatitis C screening for ag e 18-79 1986 Hepatitis B series for 19+ ( 1 of 3 - 19+ 3-dose series) 10/11/1987 Pneumococcal series for age 50+ (1 of 2 - PCV) 10/11/1987 Colonoscopy through age 75 2013 Lipids for age 45-75 2013 Mammogram for age 45-75 2013 Zoster (shingles) series for age 50+ (1 of 2) 2018 Pap test for age 21-65 06/19/2021 9, 06/19/2018, 01/06/2015 Influenza Vaccine (#1) 2024 RSV vaccine for adults or (1 - 1-dose 75+ series) 10/11/2043 COVID-19 vaccine series Completed 12/29/19 24, 11/11/2022, 11/26/2021, Additional history exists Procedures Procedure Name Priority Date/Time Associated Diagnosis Comments CT ABDOMEN PELVIS W STAT 10/15/2024 1 :20 PM CDT Abdominal pain, RLQ (right lower quadrant) URINALYSIS MICROSCOPIC STAT 10/15/2024 12:46 PM CDT Abdominal pain, RLQ (right lower quadrant) UA W/ SEDIMENT EXAM REFLEXED PER CRITERIA STAT 10/15/2024 12:46 PM CDT Abdominal pain, RLQ (right lower quadrant) CBC WITH AUTO DIFFERENTIAL STAT 10/15/2024 12:42 PM CDT Abdominal pain, RLQ (right lower quadrant) BASIC METABOLIC PANEL STAT 10/15/2024 12:42 PM CDT Abdominal pain, RLQ (right lower quadrant) CBC WITH AUTO DIFFERENTIAL STAT 10/15/2024 12:42 PM CDT Abdominal pain, RLQ (right lower quadrant) SOCIAL SECRETARY THIN PREP PAP SCREEN IMAGED Routine 06/19/2018 8:30 AM CDT from Last 3 Months or Most Recently Relevant to Health Maintenance Results * CT ABDOMEN PELVIS W (10/15/2024 1:20 PM CDT) Anatomical Region Laterality Modality Abdomen, Pelvis, AORTA, LIVER, SPLEEN Computed Tomography 10/15/2024 1:41 PM CDT Addenda Addendum by Billy Tong MD on 10/15/2024 2:11 PM CDT INDICATION: Right lower quadrant abdominal pain COMPARISON: None. TECHNIQUE: CT of the abdomen and pelvis with intravenous contrast (100 milliliters Omnipaque 300). FINDINGS: Lung bases: No pleural effusion. There is a solid left upper lobe pulmonary micronodule on series 3, image 4 and an additional solid left upper lobe pulmonary micronodule on series 3, image 49. Liver: Smooth hepatic contour. A subcentimeter hypoattenuating focus in the left hepatic lobe is too small to characterize, but statistically likely to represent a cyst. Gallbladder and biliary tree: Unremarkable CT appearance. Spleen: No splenomegaly. Pancreas: Normal. Adrenal glands: Normal. Kidneys and ureters: No hydroureteronephrosis. No suspicious renal lesions are identified. Bladder: Unremarkable CT appearance. Visualized reproductive organs: Simple 15 millimeter right ovarian cyst/follicle. Nonspecific mild soft tissue thickening at the expected location of the bilateral round ligament. Gastrointestinal tract and peritoneal cavity: Prominent periappendiceal fat stranding. There is a 2.4 x 2.1 centimeter periappendiceal fluid collection with a irregular mildly thickened enhancing rim and adjacent prominent soft tissue edema which appears to communicate with the adjacent appendix compatible with a periappendiceal abscess in the context of perforated appendicitis (2/136). No abnormally dilated loops of small or large bowel. No free intraperitoneal air. Lymph nodes: No enlarged abdominal or pelvic lymph nodes by CT size criteria. Vessels: No abdominal aortic aneurysm. Abdominal and pelvic wall: Tiny fat containing umbilical hernia. Diastasis of the rectus abdominus musculature. Bones: There are osseous degenerative changes. IMPRESSION: 1. Perforated appendicitis with a 2.4 centimeter periappendiceal abscess. 2. Two solid pulmonary micronodules in the left lower lobe. No imaging follow-up is recommended for incidental pulmonary micronodules detected on abdominal CT. Please note that all CT scans at this facility use dose modulation, iterative reconstruction, and/or weight-based dosing when appropriate to reduce radiation dose to as low as reasonably achievable. Dictated by Billy Tong MD @ 10/15/2024 1:41:39 PM ----- ADDENDUM ----- Findings discussed via telephone at 12 p.m. [place] standard time October 15, 2024 with Marina Martins. Dictated by Billy Tong MD @ Oct 15 2024 2:11PM (Electronically Signed) Impressions 10/15/2024 1:41 PM CDT 1. Perforated appendicitis with a 2.4 centimeter periappendiceal abscess. 2. Two solid pulmonary micronodules in the left lower lobe. No imaging follow-up is recommended for incidental pulmonary micronodules detected on abdominal CT. Please note that all CT scans at this facility use dose modulation, iterative reconstruction, and/or weight-based dosing when appropriate to reduce radiation dose to as low as reasonably achievable. Dictated by Billy Tong MD @ 10/15/2024 1:41:39 PM (Electronically Signed) Narrative 10/15/2024 1:41 PM CDT For Patients: As a result of the Century Cures Act, medical imaging exams and procedure reports are released immediately into your electronic medical record. You may view this report before your referring provider. If you have questions, please contact your health care provider. INDICATION: Right lower quadrant abdominal pain COMPARISON: None. TECHNIQUE: CT of the abdomen and pelvis with intravenous contrast (100 milliliters Omnipaque 300). FINDINGS: Lung bases: No pleural effusion. There is a solid left upper lobe pulmonary micronodule on series 3, image 4 and an additional solid left upper lobe pulmonary micronodule on series 3, image 49. Liver: Smooth hepatic contour. A subcentimeter hypoattenuating focus in the left hepatic lobe is too small to characterize, but statistically likely to represent a cyst. Gallbladder and biliary tree: Unremarkable CT appearance. Spleen: No splenomegaly. Pancreas: Normal. Adrenal glands: Normal. Kidneys and ureters: No hydroureteronephrosis. No suspicious renal lesions are identified. Bladder: Unremarkable CT appearance. Visualized reproductive organs: Simple 15 millimeter right ovarian cyst/follicle. Nonspecific mild soft tissue thickening at the expected location of the bilateral round ligament. Gastrointestinal tract and peritoneal cavity: Prominent periappendiceal fat stranding. There is a 2.4 x 2.1 centimeter periappendiceal fluid collection with a irregular mildly thickened enhancing rim and adjacent prominent soft tissue edema which appears to communicate with the adjacent appendix compatible with a periappendiceal abscess in the context of perforated appendicitis (2/136). No abnormally dilated loops of small or large bowel. No free intraperitoneal air. Lymph nodes: No enlarged abdominal or pelvic lymph nodes by CT size criteria. Vessels: No abdominal aortic aneurysm. Abdominal and pelvic wall: Tiny fat containing umbilical hernia. Diastasis of the rectus abdominus musculature. Bones: There are osseous degenerative changes. Procedure Note Billy Tong MD - 10/15/2024 For Patients: As a result of the Cures Act, medical imagingexams and procedure reports are released immediately into your electronicmedical record. You may view this report before your referring provider.If you have questions, please contact your health care provider. INDICATION: Right lower quadrant abdominal pain COMPARISON: None. TECHNIQUE: CT of the abdomen and pelvis with intravenous contrast (100 millilitersOmnipaque 300). FINDINGS: Lung bases: No pleural effusion. There is a solid left upper lobepulmonary micronodule on series 3, image 4 and an additional solid leftupper lobe pulmonary micronodule on series 3, image 49. Liver: Smooth hepatic contour. A subcentimeter hypoattenuating focus inthe left hepatic lobe is too small to characterize, but statisticallylikely to represent a cyst. Gallbladder and biliary tree: Unremarkable CT appearance. Spleen: No splenomegaly. Pancreas: Normal. Adrenal glands: Normal. Kidneys and ureters: No hydroureteronephrosis. No suspicious renal lesionsare identified. Bladder: Unremarkable CT appearance. Visualized reproductive organs: Simple 15 millimeter right ovariancyst/follicle. Nonspecific mild soft tissue thickening at the expectedlocation of the bilateral round ligament. Gastrointestinal tract and peritoneal cavity: Prominent periappendicealfat stranding. There is a 2.4 x 2.1 centimeter periappendiceal fluidcollection with a irregular mildly thickened enhancing rim and adjacentprominent soft tissue edema which appears to communicate with the adjacentappendix compatible with a periappendiceal abscess in the context ofperforated appendicitis (2/136). No abnormally dilated loops of small orlarge bowel. No free intraperitoneal air. Lymph nodes: No enlarged abdominal or pelvic lymph nodes by CT sizecriteria. Vessels: No abdominal aortic aneurysm. Abdominal and pelvic wall: Tiny fat containing umbilical hernia. Diastasisof the rectus abdominus musculature. Bones: There are osseous degenerative changes. IMPRESSION: 1. Perforated appendicitis with a 2.4 centimeter periappendiceal abscess. 2. Two solid pulmonary micronodules in the left lower lobe. No imagingfollow-up is recommended for incidental pulmonary micronodules detected onabdominal CT. Please note that all CT scans at this facility use dose modulation,iterative reconstruction, and/or weight-based dosing when appropriate toreduce radiation dose to as low as reasonably achievable. Dictated by Billy Tong MD @ 10/15/2024 1:41:39 PM (Electronically Signed) us Marina Martins FIREWORKS INSPECTOR CT Edited Re sult - Final * (ABNORMAL) URINALYSIS MICROSCOPIC (10/15/2024 12:46 PM CDT) RBC 0-2 0-2, None Seen /HPF 10/15/2024 1:24 PM [facility] WBC 0-2 0-2, 3-5, None Seen /HPF 10/15/2024 1:24 PM [facility] BACTERIA Many(A) None Seen, Rare, Few Bacteria/H PF 10/15/2024 1:24 PM [facility] EPITHELIAL CELLS Few None Seen, Few Epi/HPF 10/15/2024 1:24 PM [facility] Mucus Present 10/15/2024 1:24 PM [facility] Urine URINE SPECIMEN / Unknown Non-Blood / Unknown 10/15/2024 12:46 PM CDT 10/15/2024 12:46 PM CDT us Marina Martins FIREWORKS INSPECTOR URINE Final Res ult [facility] [address] [place] [address] * (ABNORMAL) UA W/ SEDIMENT EXAM REFLEXED PER CRITERIA [85060.2] (10/15/2024 12:46 PM CDT) COLOR Yellow Yellow Color 10/15/2024 1:08 PM T [facility] CLARITY Clear Clear Clarity 10/15/2024 1:08 PM [facility] SPECIFIC GRAVITY,URINE 1.010 1.010, 1.015, 1.020, 1.025 10/15/2024 1:08 PM [facility] PH,URINE 6.5 6.0, 7.0, 8.0, 5.5, 6.5, 7.5, 8.5 10/15/2024 1:08 PM [facility] UROBILINOGEN, QUALITATIVE Normal Normal EU/dl 10/15/2024 1:08 PM [facility] PROTEIN, URINE Negative Negative mg/dL 10/15/2024 1:08 PM [facility] GLUCOSE, URINE >=1000(A) Negative mg/dL 10/15/2024 1:08 PM [facility] KETONES,URINE Negative Negative mg/dL 10/15/2024 1:08 PM [facility] BILIRUBIN,URI NE Negative Negative 10/15/2024 1:08 PM [facility] OCCULT BLOOD,URINE Negative Negative 10/15/2024 1:08 PM [facility] NITRITE Negative Negative 10/15/2024 1:08 PM [facility] LEUKOCYTE ESTERASE Negative Negative 10/15/2024 1:08 PM [facility] Urine URINE SPECIMEN / Unknown Non-Blood / Unknown 10/15/2024 12:46 PM CDT 10/15/2024 12:46 PM CDT us Marina Martins FIREWOR[employer] INSPECTOR URINE Final Res ult [facility] [address] [facility] [place] [address] * (ABNORMAL) CBC WITH AUTO DIFFERENTIAL (10/15/2024 12:42 PM CDT) WHITE BLOOD COUNT 15.0(H) 4.5 - 11.0 thou/cu mm 10/15/2024 12:55 PM T [facility] RED BLOOD COUNT 4.44 4.00 - 5.20 mil/cu mm 10/15/2024 12:55 PM [facility] HEMOGLOBIN 13.6 12.0 - 16.0 g/dL 10/15/2024 12:55 PM [facility] HEMATOCRIT 40.8 33.0 - 51.0 % 10/15/2024 12:55 PM [facility] MCV 92 80 - 100 fL 10/15/2024 12:55 PM [facility] MCH 30.6 26.0 - 34.0 pg 10/15/2024 12:55 PM [facility] MCHC 33.3 32.0 - 36.0 g/dL 10/15/2024 12:55 PM [facility] RDW 13.0 11.5 - 15.5 % 10/15/2024 12:55 PM [facility] PLATELET COUNT 344 140 - 440 thou/cu mm 10/15/2024 12:55 PM [facility] MPV 10.0 6.5 - 11.0 fL 10/15/2024 12:55 PM [facility] % NEUT 76.0 % 10/15/2024 12:55 PM [facility] % LYMPH 11.7 % 10/15/2024 12:55 PM [facility] % MONO 11.2 % 10/15/2024 12:55 PM [facility] % EOS 1.0 % 10/15/2024 12:55 PM [facility] % BASO 0.1 % 10/15/2024 12:55 PM T [facility] ABSOLUTE NEUTROPHILS 11.4(H) 1.7 - 7.0 thou/cu mm 10/15/2024 12:55 PM T [facility] ABSOLUTE LYMPHOCYTES 1.8 0.9 - 2.9 thou/cu mm 10/15/2024 12:55 PM T [facility] ABSOLUTE MONOCYTES 1.7(H) <0.9 thou/cu mm 10/15/2024 12:55 PM T [facility] ABSOLUTE EOSINOPHILS 0.2 <0.5 thou/cu mm 10/15/2024 12:55 PM [facility] ABSOLUTE BASOPHILS 0.0 <0.3 thou/cu mm 10/15/2024 12:55 PM [facility] Blood BLOOD SPECIMEN / Unknown [facility] / Unknown 10/15/2024 12:42 PM CDT 10/15/2024 12:42 PM CDT us Marina Martins NP HEMATOLOGY Final Res ult [facility] [address] [id number] * (ABNORMAL) BASIC METABOLIC PANEL (10/15/2024 12:42 PM CDT) SODIUM 138 136 - 145 mmol/L 10/15/2024 1:07 PM [facility] POTASSIUM 3.7 3.5 - 5.1 mmol/L 10/15/2024 1:07 PM [facility] CHLORIDE 101 98 - 107 mmol/L 10/15/2024 1:07 PM [facility] CO2,TOTAL 26 22 - 29 mmol/L 10/15/2024 1:07 PM [facility] ANION GAP 11 5 - 18 10/15/2024 1:07 PM [facility] GLUCOSE 114(H) 70 - 99 mg/dL 10/15/2024 1:07 PM [facility] CALCIUM 9.3 8.8 - 10.4 mg/dL 10/15/2024 1:07 PM [facility] Comment: Reference ranges for this test were updated on 12/16/2023 to reflect our healthy population more accurately. Reference range changes are not retroactively applied to results, but previous results using the same methodology can be interpreted in the context of the new reference range. BUN 11 6 - 20 mg/dL 10/15/2024 1:07 PM [facility] CREATININE 0.73 0.50 - 0.90 mg/dL 10/15/2024 1:07 PM [facility] BUN/CREAT RATIO 15 10 - 20 1:07 PM [facility] eGFR >90 >90 mL/min/1. 73m2 10/15/2024 1:07 PM [facility] Comment:As of 2021, eG FR is calculated by the CKD-EPI creatinine equation without race adjustment. eGFR can be influenced by muscle mass, exercise, and diet. The reported eGFR is an estimation only and is only applicable if the renal function is stable. Blood BLOOD SPECIMEN / Unknown [facility] / Unknown 10/15/2024 12:42 PM CDT 10/15/2024 12:42 PM CDT us Marina Martins NP CHEMISTRY Final Res ult [facility] [address] [place] [id number] * SOCIAL SECRETARY THIN PREP PAP SCREEN IMAGED (06/19/2018 8:30 AM CDT) Case Report Gynecologic Cytology Report Case: [id number] Authorizing Provider: Kobi Zavaltea MD Collected: 06/19/2018 0830 Ordering Location: [facility] Received: 06/19/2018 1740 First Screen: Hodan Rodríguez Specimen: SOCIAL SECRETARY ThinPrep Vial Screening, Cervical/Vaginal 06/29/2018 2:03 PM CDT [facility] INTERPRETATION/ RESULT NEGATIVE FOR INTRAEPITHELIAL LESION OR MALIGNANCY (NIL) (none) 06/29/2018 2:03 PM CDT [facility] at 1403 CDT SPECIMEN ADEQUACY Satisfactory for evaluation No endocervical component seen 06/29/2018 2:03 PM CDT [facility] HPV REQUEST HPV and PAP 06/29/2018 2:03 PM CDT [facility] Last Pap Date 01/06/2015 06/29/2018 2:03 PM CDT [facility] Comment:NORMAL Menstrual Status 06/29/2018 2:03 PM CDT [facility] Comment:N/A Automated Review Successful 06/29/2018 2:03 PM CDT [facility] Comment:Specimen processed s uccessfully by automated pick remover device, ThinPrep Imaging System, [employer] ANCILLARY TESTING SOCIAL SECRETARY HPV Ordered, Please see separate report 06/29/2018 2:03 PM CDT [facility] Note The pap test is a screening technique, not a diagnostic procedure. It is used primarily to screen for squamous cancers and precursor lesions. Published studies have shown that it is subject to both false negative and false positive results. The pap test should not be used as the sole means to diagnose or exclude pre-malignant and malignant lesions. Cytology is screened and interpreted at [facility] - [address], [place] [address] and [facility] - [address]; [place] [address] and [facility] - [address]; [place] [address] and [facility] [address]; [place] [address] 06/29/2018 2:03 PM CDT [facility] Other (Cervical/Vagina l) 06/19/2018 8:30 AM CDT 06/19/2018 5:40 PM CDT us Kobi Zavaleta MD PATHOLOGY/CYTOLOGY Final Re sult [facility] [address] [place] [address], from Last 3 Months or Most Recently Relevant to Health Maintenance Insurance [employer] [facility] [employer] Care Teams Drapery Hemmer Automatic Relationship Specialty Start Date End Date Kobi Zavaleta MD PCP - General Family Practice 04/03/12
--- NOTE | 2024-10-15 14:47 | ED.GENADULT ---
HPI - General Adult General Chief complaint: Abdominal Pain Stated complaint: ruptured appendix Time Seen by Provider: 10/15/24 14:47 History of Present Illness HPI narrative: Pt comes from [facility], states she developed RLQ abdominal pain last night at 1999. Denies fever/chills. 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 States she has a ruptured appy, abscess. No surgeon epic professional at [facility]. Pain currnently 07/20 54-year-old woman presenting to the emergency department with concern of ruptured appendicitis. Around 8:00 p.m. yesterday evening on 10/14 had abrupt onset of sharp lower right abdominal pain. Initially she thought maybe ovarian cyst but been awhile since she had that and only once. Pain did continue however to the morning at which point she was having some difficulty breathing just because it was exacerbating her pain. Transitioning causes some pain as well. She has not had nausea. Has not had fever. Does struggle with constipation and does feel like she has to have frequent bowel movements with this discomfort but is not. Went to urgent care where was ?worked up? including blood work ([place] [address] with normal hemoglobin (13.6) and basic metabolic panel (CR 0.73) also unremarkable and slightly elevated glucose - blood sugar of 114 with glucosuria as well) Impression from CT abdomen pelvis with contrast done at that time this afternoon -- noted to have perforated appendicitis with a 2.4 cm periappendiceal abscess. Incidental findings also of a couple pulmonary micro nodules in the left lower lobe (she smoked for about 10 years in the 80s to 90s) Recommendations were for transfer elsewhere due to no surgical coverage at this time where she was initially evaluated. And inquiring as to candidacy for surgery, she does note a history of asthma primarily allergy triggers. Has struggled with the smoke this summer. She does also note that has had trouble with asthma flaring for about a week post extubation in the past. She believes improved with intraoperative nebs. Related Data Home Medications ?Medication ?Instructions ?Recorded ?Confirmed carboxymethylcellulose sodium 1 % 1 drp ophthalmic (eye) BID 11/27/22 07/21/24 eye drops (Artificial Tears (carboxymethylcellulose)) diphenhydramine HCl 25 mg tablet 25 mg PO QHS PRN 07/02/23 07/21/24 (Benadryl Allergy) esomeprazole magnesium 20 mg 20 mg PO QDAY 07/02/23 07/21/24 capsule,delayed release albuterol sulfate 90 mcg/actuation 2 puff inhalation Q4-6H PRN 03/23/24 07/21/24 aerosol inhaler prednisone 20 mg tablet 20 mg PO BID PRN 03/23/24 07/21/24 cetirizine 10 mg tablet (Zyrtec) 10 mg PO QDAY 07/21/24 07/21/24 fluticasone propionate 220 1 puff inhalation .1-2 x daily 07/21/24 mcg/actuation HFA aerosol inhaler minoxidil 2.5 mg tablet See Rx Instructions PO .COMPLEX 07/21/24 07/21/24 multivitamin (Multiple Vitamins 1 tab PO QDAY 07/21/24 07/21/24 tablet) naproxen sodium 220 mg tablet 220 mg PO BID 07/21/24 07/21/24 (Aleve) Previous Rx's ?Medication ?Instructions ?Recorded albuterol sulfate 2.5 mg/3 mL 2.5 mg (3 mL) inhalation Q4H PRN 10/16/23 (0.083 %) solution for nebulization shortness of breath or wheezing #75 mL atorvastatin 10 mg tablet See Rx Instructions .Route 06/04/24 .COMPLEX #90 tabs citalopram 20 mg tablet See Rx Instructions .Route 06/04/24 .COMPLEX #90 tabs levothyroxine 112 mcg tablet 112 mcg PO QDAY #90 tabs 06/04/24 montelukast 10 mg tablet 10 mg PO QHS #90 tabs 06/04/24 phentermine 30 mg capsule 30 mg PO QDAY #30 caps 06/04/24 estradiol 1 mg tablet 1 mg PO QDAY #90 tabs 08/04/24 Allergies Allergy/AdvReac Type Severity Reaction Status Date / Time minocycline (From Minocin) Allergy Intermediate Blister Verified 07/21/24 15:13 titanium Allergy Intermediate SOB Verified 07/21/24 15:13 Review of Systems Status of ROS: Reports: 6 or more systems reviewed and unremarkable except as noted in History and below [facility] Medical History Hyperlipidemia ?E78.5 - Hyperlipidemia, unspecified (ICD-10) Hypothyroidism ?E03.9 - Hypothyroidism, unspecified (ICD-10) Asthma ?J45.909 - Unspecified asthma, uncomplicated (ICD-10) Seasonal allergic rhinitis (04/21/09) ?J30.2 - Other seasonal allergic rhinitis (ICD-10) Depression ?F32.A - Depression, unspecified (ICD-10) Osteoarthritis of right knee ?M17.11 - Unilateral primary osteoarthritis, right knee (ICD-10) Lateral epicondylitis of right elbow ?M77.11 - Lateral epicondylitis, right elbow (ICD-10) Menopausal disorder ?N95.9 - Unspecified menopausal and perimenopausal disorder (ICD-10) Snoring ?R06.83 - Snoring (ICD-10) Hair loss ?L65.9 - Nonscarring hair loss, unspecified (ICD-10) Dry eye syndrome ?H04.129 - Dry eye syndrome of unspecified lacrimal gland (ICD-10) Urinary, incontinence, stress female ?N39.3 - Stress incontinence (female) (male) (ICD-10) Tobacco use (04/21/09) ?Z72.0 - Tobacco use (ICD-10) Surgical History S/P right knee arthroscopy (10/28/23) ?Z98.890 - Other specified postprocedural states (ICD-10) Status post creation of urethral sling by suprapubic approach ?Z98.890 - Other specified postprocedural states (ICD-10) Status post shoulder surgery ?Z98.890 - Other specified postprocedural states (ICD-10) Status post carpal tunnel release (04/21/09) ?Z98.890 - Other specified postprocedural states (ICD-10) Status post abdominal supracervical subtotal hysterectomy (04/21/09) ?Z90.711 - Acquired absence of uterus with remaining cervical stump (ICD-10) History of sinus surgery (04/21/09) ?Z98.890 - Other specified postprocedural states (ICD-10) Family History Father Diabetes Grandmother Diabetes Stroke Heart disease Maternal Grandmother Diabetes Heart disease Brother High blood pressure High cholesterol Aunt Mental illness in member of household 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 What is your current living situation?: I presently have a place to live Problems where you live: no known problems In the past 12 months, utilities in danger of being shut off: no In past 12 months, lack of transportation kept you from medical appts, meetings, work, or getting things needed for daily living: no In the past 12 mos, have been you worried that your food would run out before you had money to buy more?: never true In the past 12 mos, the food you bought just didn't last and you didn't have money to buy more?: never true Smoking Status: Former smoker What tobacco products do you use: cigarettes Smoking quit date/years: <= 15 years ago Do you use any of these nicotine containing products: None Second hand tobacco smoke exposure: No How often do you have a drink containing alcohol: monthly or less How many standard drinks containing alcohol do you have on a typical day: 3 or 4 How often do you have six or more drinks on one occasion: Never AUDIT-C Alcohol total score: 2 Non-prescribed substance use: denies use Caffeine: Yes How often does anyone, including family, friends and others, physically hurt you: never How often does anyone, including family, friends and others, insult or talk down to you: rarely How often does anyone, including family, friends and others, threaten you with harm: never How often does anyone, including family, friends and others, scream or curse at you: never Are you using contraception or practicing any form of control: No Health Related Social Needs: Other personal risk factors, not elsewhere classified (Z91.89) Exam Narrative: Exam Narrative: Very pleasant. Good energy. Breathing easily. Deep inspiration does cause increased pain. Going to seated position also exacerbates pain. There is no wheeze in her lungs. Breath sounds throughout. Heart is tachycardic in a regular rhythm. Abdomen with diminished bowel sounds. Overweight. Soft and moderately tender with guarding in the right mid abdomen. Extremities well perfused. She is without edema. Oropharynx is moist. Const: Vital Signs, click to edit/add: Vital Signs - 24 hr 10/15/24 14:38 Temperature 98.4 F Pulse Rate [Pulse Oximeter] 119 H Respiratory Rate 18 Blood Pressure [Ri ght Upper Arm] 139/89 Pulse Oximetry 96 Oxygen Delivery Me thod Room Air Documenting provider has reviewed patient's vital signs: yes Course Vital Signs Vital signs: Initial Vital Signs Temperature 98.4 F 10/15/24 14:38 Temperature Source Temporal Artery Scan 10/15/24 14:38 Pulse Rate 119 H 10/15/24 14:38 Respiratory Rate 18 10/15/24 14:38 Blood Pressure 139/89 10/15/24 14:38 Blood Pressure Mean 105 10/15/24 14:38 Blood Pressure Position Supine 10/15/24 14:38 Pulse Oximetry 96 10/15/24 14:38 Oxygen Delivery Method Room Air 10/15/24 14:38 Vital Signs Temperature 98.4 F 10/15/24 14:38 Pulse Rate 119 H 10/15/24 14:38 Respiratory Rate 18 10/15/24 14:38 Blood Pressure 139/89 10/15/24 14:38 Pulse Oximetry 96 10/15/24 14:38 Oxygen Delivery Method Room Air 10/15/24 14:38 Temperature 98.4 F 10/15/24 14:38 Pulse Rate 119 H 10/15/24 14:38 Respiratory Rate 18 10/15/24 14:38 Blood Pressure 139/89 10/15/24 14:38 Pulse Oximetry 96 10/15/24 14:38 Oxygen Delivery Method Room Air 10/15/24 14:38 Medications Administered Medications: Generic Name Dose Route Start Last Admin Trade Name Freq PRN Reason Stop Dose Admin Sodium Chloride 1,000 mls @ 1,000 mls/hr 10/15/24 15:32 10/15/24 15:38 0.9 % Sodium Chloride 1000 Ml IV 10/15/24 16:31 1,000 mls/hr .Q1H ONE Administration Discontinued Medications Generic Name Dose Route Start Last Admin Trade Name Freq PRN Reason Stop Dose Admin Morphine Sulfate 4 mg 10/15/24 15:32 10/15/24 15:38 Morphine 4 Mg/Ml Inj IVP 10/15/24 15:33 4 mg ONCE ONE Administration Medical Decision Making MDM Narrative Medical decision making narrative: Diagnosis made at this point already of periappendiceal abscess with perforated appendix. General surgeon already aware and has communicated with this department. Discussed this case also with them. Plans are being made for surgery. IV fluids and 4 mg IV morphine. Considering history of asthma and potential post extubation difficulty, will get baseline chest x-ray at and EKG. Will try to obtain formal copies of laboratory analysis earlier today. On reassessment she is feeling better ?the edge of the pain was improved. I discussed incidental findings of micro nodules with Svitlana. Will follow this up as appropriate in primary care. Chest x-ray one view independently reviewed by me looks to be unremarkable without airspace disease. Normal cardiac silhouette. Medical Records Medical records reviewed: Yes I reviewed the patient's medical records ECG Data Attestation: I personally reviewed and interpreted this ECG as follows: (Sinus tachycardia in the 1 teens. PVC. No ischemic changes.) Discharge Plan Discharge Clinical Impression: Acute appendicitis, Abscess, periappendiceal, Asthma Patient Disposition: XFER to OR Condition: Stable Follow Up/Referrals: Kobi Zavaleta MD [Primary Care Provider, Family Practice]
--- NOTE | 2024-10-15 15:32 | XR_ITS ---
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 Site :?[id number] Study:?XRay-Chest 1 VIEW-10/15/2024 3:54:10 PM Ordering Physician:Javon French Final Report: Indication: Preop, history of asthma Technique: Chest 1 view. Comparison: None. Findings/Impression: Cardiovascular and mediastinum: Heart size is normal. Unremarkable mediastinum. Lungs and pleural space: Lungs are clear. No sign of infiltrate or mass. No sign of pleural effusion. No pneumothorax. Bones and soft tissues: No acute findings. Dictated by Nadege Menchaca MD @ 10/15/2024 4:06:55 PM Signed by:?Nadege Menchaca MD @10/15/2024 4:06:55 PM (Electronic Signature)
[2024-10-15] MEDS: MORPHINE 4 MG/ML INJ IVP ×2 (15:38→18:47)
[2024-10-15] MEDS: LACTATED RINGERS 1000 ML 1,000 ML 125 ML IV (17:00)
--- NOTE | 2024-10-15 17:25 | SUR.OPER ---
Procedure not started due to inability to intubate patient.
--- NOTE | 2024-10-15 17:26 | SUR.PHASEI ---
Patient awake and talking in PACU. Comfortable, denies pain or nausea at this time. Airway open and breathing easy without difficulties. Patient denies any shortness of breath. States she is breathing fine.
--- NOTE | 2024-10-15 17:29 | PM.GSHP ---
History of Present Illness History of Present Illness Date Seen: 10/15/24 Chief complaint: ruptured appendix Narrative: Svitlana Pham is a 54 year old female who presented to emergency room with abdominal pain. Patient developed abdominal pain all of a sudden last night. It was in right lower quadrant. Throughout the night and today in the morning the pain was persistent. The pain was described as sharp and constant. In the morning patient was having more pain when taking a deep breath or moving. She denied nausea or vomiting. She denied fevers. She was at work in [employer] and went to urgent care. I personally reviewed her workup through [facility]. She was found to have elevated WBC of 15. An abdominal CT was obtained that showed 2.4 cm periappendiceal abscess communicating with the appendix suggestive of ruptured appendicitis. There was no significant phlegmon adjacent to the cecum and the base of the appendix was not inflamed. There was no dilated small or large intestine. Review of Systems Narrative: General: no fevers HENT: no problems swallowing CV: no shortness of breath Resp: no cough GI: No nausea, vomiting, abdominal pain : no dysuria, no increased urinary frequency, no hematuria Skin: no new rashes Musculoskeletal: no back pain Neuro: no muscle weakness Psyche: no depression, no anxiety PFSH PFSH Medical History Hyperlipidemia ?E78.5 - Hyperlipidemia, unspecified (ICD-10) Hypothyroidism ?E03.9 - Hypothyroidism, unspecified (ICD-10) Asthma ?J45.909 - Unspecified asthma, uncomplicated (ICD-10) Seasonal allergic rhinitis (04/21/09) ?J30.2 - Other seasonal allergic rhinitis (ICD-10) Depression ?F32.A - Depression, unspecified (ICD-10) Osteoarthritis of right knee ?M17.11 - Unilateral primary osteoarthritis, right knee (ICD-10) Lateral epicondylitis of right elbow ?M77.11 - Lateral epicondylitis, right elbow (ICD-10) Menopausal disorder ?N95.9 - Unspecified menopausal and perimenopausal disorder (ICD-10) Snoring ?R06.83 - Snoring (ICD-10) Hair loss ?L65.9 - Nonscarring hair loss, unspecified (ICD-10) Dry eye syndrome ?H04.129 - Dry eye syndrome of unspecified lacrimal gland (ICD-10) Urinary, incontinence, stress female ?N39.3 - Stress incontinence (female) (male) (ICD-10) Tobacco use (04/21/09) ?Z72.0 - Tobacco use (ICD-10) Surgical History History of hysterectomy ?Z90.710 - Acquired absence of both cervix and uterus (ICD-10) S/P right knee arthroscopy (10/28/23) ?Z98.890 - Other specified postprocedural states (ICD-10) Status post creation of urethral sling by suprapubic approach ?Z98.890 - Other specified postprocedural states (ICD-10) Status post shoulder surgery ?Z98.890 - Other specified postprocedural states (ICD-10) Status post carpal tunnel release (04/21/09) ?Z98.890 - Other specified postprocedural states (ICD-10) Status post abdominal supracervical subtotal hysterectomy (04/21/09) ?Z90.711 - Acquired absence of uterus with remaining cervical stump (ICD-10) History of sinus surgery (04/21/09) ?Z98.890 - Other specified postprocedural states (ICD-10) Family History Father Diabetes Grandmother Diabetes Stroke Heart disease Maternal Grandmother Diabetes Heart disease Brother High blood pressure High cholesterol Aunt Mental illness in member of household 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 What is your current living situation?: I presently have a place to live Problems where you live: no known problems In the past 12 months, utilities in danger of being shut off: no In past 12 months, lack of transportation kept you from medical appts, meetings, work, or getting things needed for daily living: no In the past 12 mos, have been you worried that your food would run out before you had money to buy more?: never true In the past 12 mos, the food you bought just didn't last and you didn't have money to buy more?: never true Smoking Status: Former smoker What tobacco products do you use: cigarettes Smoking quit date/years: <= 15 years ago Do you use any of these nicotine containing products: None Second hand tobacco smoke exposure: No How often do you have a drink containing alcohol: monthly or less How many standard drinks containing alcohol do you have on a typical day: 3 or 4 How often do you have six or more drinks on one occasion: Never AUDIT-C Alcohol total score: 2 Non-prescribed substance use: denies use Caffeine: Yes How often does anyone, including family, friends and others, physically hurt you: never How often does anyone, including family, friends and others, insult or talk down to you: rarely How often does anyone, including family, friends and others, threaten you with harm: never How often does anyone, including family, friends and others, scream or curse at you: never Are you using contraception or practicing any form of control: No service: No Health Related Social Needs: Other personal risk factors, not elsewhere classified (Z91.89) Meds Home Medications and Allergies Home Medications ?Medication ?Instructions ?Recorded ?Confirmed ?Type carboxymethylcellulose sodium 1 % 1 drp ophthalmic (eye) BID 11/27/22 07/21/24 History eye drops (Artificial Tears (carboxymethylcellulose)) diphenhydramine HCl 25 mg tablet 25 mg PO QHS PRN 07/02/23 07/21/24 History (Benadryl Allergy) esomeprazole magnesium 20 mg 20 mg PO QDAY 07/02/23 07/21/24 History capsule,delayed release albuterol sulfate 2.5 mg/3 mL 2.5 mg (3 mL) inhalation Q4H PRN 10/16/23 07/21/24 Rx (0.083 %) solution for nebulization shortness of breath or wheezing #75 mL albuterol sulfate 90 mcg/actuation 2 puff inhalation Q4-6H PRN 03/23/24 07/21/24 History aerosol inhaler prednisone 20 mg tablet 20 mg PO BID PRN 03/23/24 07/21/24 History atorvastatin 10 mg tablet See Rx Instructions .Route 06/04/24 07/21/24 Rx .COMPLEX #90 tabs citalopram 20 mg tablet See Rx Instructions .Route 06/04/24 07/21/24 Rx .COMPLEX #90 tabs levothyroxine 112 mcg tablet 112 mcg PO QDAY #90 tabs 06/04/24 07/21/24 Rx montelukast 10 mg tablet 10 mg PO QHS #90 tabs 06/04/24 07/21/24 Rx phentermine 30 mg capsule 30 mg PO QDAY #30 caps 06/04/24 07/21/24 Rx cetirizine 10 mg tablet (Zyrtec) 10 mg PO QDAY 07/21/24 07/21/24 History fluticasone propionate 220 1 puff inhalation .1-2 x daily 07/21/24 History mcg/actuation HFA aerosol inhaler minoxidil 2.5 mg tablet See Rx Instructions PO .COMPLEX 07/21/24 07/21/24 History multivitamin (Multiple Vitamins 1 tab PO QDAY 07/21/24 07/21/24 History tablet) naproxen sodium 220 mg tablet 220 mg PO BID 07/21/24 07/21/24 History (Aleve) estradiol 1 mg tablet 1 mg PO QDAY #90 tabs 08/04/24 Rx Allergies Allergy/AdvReac Type Severity Reaction Status Date / Time minocycline (From Minocin) Allergy Intermediate Blister Verified 07/21/24 15:13 titanium Allergy Intermediate SOB Verified 07/21/24 15:13 Exam Narrative: Exam Narrative: General appearance: Alert, cooperative, and in no distress Pulmonary: Chest symmetric, lungs clear bilaterally Cardiovascular Heart: Regular rate and rhythm, S1, S2, no murmurs/rubs/gallops Gastrointestinal Abdominal: soft, not distended, tender to palpation in the right mid flank but not suprapubically and not at McBurney's point. Skin: Normal skin color, texture, and turgor. No rashes or lesions. Psychiatric: Alert, cooperative, normal affect. Const: Vital Signs, click to edit/add: Vital Signs - 24 hr 10/15/24 14:38 10/15/24 16:39 10/15/24 17:16 Temperature 98.4 F 98.9 F 97.4 F L Pulse Rate 117 H Pulse Rate [Pulse Oximeter] 119 H 118 H Respiratory Rate 18 18 18 Blood Pressure 154/91 H Blood Pressure [Ri ght Upper Arm] 139/89 123/78 Pulse Oximetry 96 98 96 Oxygen Delivery Me thod Room Air Room Air Room Air 10/15/24 17:20 09/05/25 17:25 Temperature Pulse Rate 116 H 118 H Pulse Rate [Pulse Oximeter] Respiratory Rate 16 16 Blood Pressure 153/77 H 151/83 H Blood Pressure [Ri ght Upper Arm] Pulse Oximetry 96 96 Oxygen Delivery Me thod Progress Note:A&P Assessment and plan (1) Perforated appendicitis: Status: Acute Assessment and Plan: 54-year-old female presents with perforated appendicitis. I discussed with the patient my clinical findings. We talked about her laboratory findings and her CT findings. Patient's CT shows perforated appendicitis with a small periappendiceal abscess. Given the location of her tenderness on palpation and her CT, I suspect that her appendix and her periappendiceal abscess might be retrocecal. I recommended to proceed with laparoscopic appendectomy. The procedure was discussed in detail. The risks associated procedure including infection, bleeding, injury to intra-abdominal organs, and other complications were all discussed with patient, and she agreed to proceed. After the patient was brought to the operating room and sedated by Anesthesia, 2 attempts were made at intubating her (including fiberoptic scope) and were not successful. Patient's airway was thought to be very anterior and fiberoptic scope was not able to be advanced into her airway. Patient was then awakened completely by Anesthesia and after discussion with anesthesia on how to proceed, we elected not to sedate her and paralyze her again and instead transfer her to a tertiary center. The patient was awake and was updated with this information. I also discussed this with her can who is on he with his way to the hospital. Patient is receiving Zosyn.
[2024-10-15] MEDS: PIPERACILLIN/TAZOBACTAM 3.375 GM in 0.9 % SODIUM CHLORIDE Mini-bag 100 ML IVPB (17:39)
--- NOTE | 2024-10-15 17:45 | P.DS_ITS ---
DS: Providers Provider Date Seen: 10/15/24 Date of admission: 10/15/24 Primary care physician: Kobi Zavaleta MD Attending Physician on discharge: Sherin Rothman MD Date of Discharge: 10/15/24 DS: Diagnosis Discharge Diagnosis (1) Perforated appendicitis: Status: Acute DS: Summary Hospital Course Hospital Course: 54-year-old female presented through emergency room with perforated append icitis. Laparoscopic appendectomy was recommended. Patient was brought into the operating room and sedated by Anesthesia. Two attempts were made at intubating the patient but those were not successful despite using glide scope and fiberoptic scope. Patient was awaken from anesthesia and decision was made to transfer her to tertiary center. Time Spent with Patient Time attestation: Total time spent providing and/or coordinating discharge services: Exam Narrative: Exam Narrative: Patient was awake and alert, slightly tachycardic in the PACU. Vital signs are stable. Const: Vital Signs, click to edit/add: Vital Signs - 24 hr 10/15/24 14:38 10/15/24 16:39 10/15/24 17:16 Temperature 98.4 F 98.9 F 97.4 F L Pulse Rate 117 H Pulse Rate [Pulse Oximeter] 119 H 118 H Respiratory Rate 18 18 18 Blood Pressure 154/91 H Blood Pressure [Ri ght Upper Arm] 139/89 123/78 Pulse Oximetry 96 98 96 Oxygen Delivery Me thod Room Air Room Air Room Air 10/15/24 17:20 10/15/24 17:25 10/15/24 17:30 Temperature Pulse Rate 116 H 118 H 116 H Pulse Rate [Pulse Oximeter] Respiratory Rate 16 16 18 Blood Pressure 153/77 H 151/83 H 149/73 H Blood Pressure [Ri ght Upper Arm] Pulse Oximetry 96 96 97 Oxygen Delivery Me thod Room Air 10/15/24 17:35 10/15/24 17:40 Temperature Pulse Rate 117 H 118 H Pulse Rate [Pulse Oximeter] Respiratory Rate 24 20 Blood Pressure 137/80 126/74 Blood Pressure [Ri ght Upper Arm] Pulse Oximetry 97 97 Oxygen Delivery Me thod Discharge Plan Discharge Disposition: Home w/ Parent or Adult Discharging Surgeon: Sherin Rothman Follow-Up Appointment: none Prescriptions: No Action Artificial Tears (cmc) 1 % drops 1 drp ophthalmic (eye) BID naproxen sodium [Aleve] 220 mg tablet 220 mg PO BID esomeprazole magnesium 20 mg capsule,delayed release(DR/EC) 20 mg PO QDAY diphenhydramine HCl [Benadryl Allergy] 25 mg tablet 25 mg PO QHS PRN albuterol sulfate 90 mcg/actuation HFA aerosol inhaler 2 puff inhalation Q4-6H PRN prednisone 20 mg tablet 20 mg PO BID PRN multivitamin [Multiple Vitamins] Tablet 1 tab PO QDAY cetirizine [Zyrtec] 10 mg tablet 10 mg PO QDAY minoxidil 2.5 mg tablet See Rx Instructions PO .COMPLEX Rx Instructions: orally; 0.25 tablet bid fluticasone propionate 220 mcg/actuation HFA aerosol inhaler 1 puff inhalation .1-2 x daily albuterol sulfate 2.5 mg /3 mL (0.083 %) solution for nebulization 2.5 mg inhalation Q4H PRN (Reason: shortness of breath or wheezing) Qty: 75 0RF atorvastatin 10 mg tablet See Rx Instructions .ROUTE .COMPLEX Qty: 90 3RF Dose Instruction: TAKE ONE TABLET BY MOUTH AT BEDTIME Rx Instructions: TAKE ONE TABLET BY MOUTH AT BEDTIME citalopram 20 mg tablet See Rx Instructions .ROUTE .COMPLEX Qty: 90 3RF Dose Instruction: TAKE ONE TABLET BY MOUTH EVERY DAY Rx Instructions: TAKE ONE TABLET BY MOUTH EVERY DAY levothyroxine 112 mcg tablet 112 mcg PO QDAY Qty: 90 2RF Patient Comments: TAKE ONE TABLET BY MOUTH EVERY DAY montelukast 10 mg tablet 10 mg PO QHS Qty: 90 3RF phentermine 30 mg capsule 30 mg PO QDAY Qty: 30 2RF Rx Instructions: must administer 2 hours after breakfast estradiol 1 mg tablet 1 mg PO QDAY Qty: 90 2RF Patient Instructions: General Anesthesia (DC) Follow-up: Kobi Zavaleta MD [Primary Care Provider, Family Practice] Discharge Orders: Discharge Order (Routine); Ordered 10/15/24 Ordered By: Sherin Rothman
--- NOTE | 2024-10-15 17:59 | SUR.PHASEI ---
Patient meets discharge criteria from PACU. She is going to ED prior to being discharged or transferred to another facility.
--- NOTE | 2024-10-15 18:03 | P.ANES_ITS ---
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
--- NOTE | 2024-10-15 18:03 | W.ANESCHARGE ---
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
--- NOTE | 2024-10-15 18:16 | SUR.PHASEI ---
Report given to ED RN Matilde regarding patient transfer to ED after PACU I.
--- NOTE | 2024-10-15 18:45 | SUR.PHASEII ---
Quill Winder called as she was given verbal order per Dr. Rothman for medications while in ED as Same Day Patient in Phase II.
--- NOTE | 2024-10-15 19:12 | SUR.PHASEII ---
Pt beiing discharged from Phase II, will be readmitted to ED and seen/cared for by our ED physician (Dr. Moreno) until transfer to outside hospital.
== END 2024-10-15 19:09 | disposition other institution (70) ==
LOC: ED 16:33 → SS 16:41
PROVIDERS: Emergency Provider Family Medicine; PCP Family Medicine; Visit Provider Surgery
PROC: 0DTJ4ZZ Resection of Appendix, Percutaneous Endoscopic Approach (ICD-10-PCS; CPT 44970; principal; 2024-10-15 16:30)
DX: K35.33 Acute appendicitis with perforation, localized peritonitis, and gangrene, with abscess (principal); T88.4XXA Failed or difficult intubation, initial encounter; J45.909 Unspecified asthma, uncomplicated
CPT/HCPCS: 44970; 00840; 71045; 93005; 99140; 99284; 99285; J0330; J2250; J2270; J2543; J2704; J3010; J7030; J7120

== ENCOUNTER 2024-10-15 19:09 | Emergency (ER) | payer BC, OTHER, SELFPAY ==
--- OUTSIDE RECORDS SUMMARY | 2020-01-17 06:31 | XMS_ITS | Continuity of Care Document ---
Author Organization [facility] Address [address] [address] [place] [address] Phone Care Team Providers Care Corn Press Operator Name Role Phone Alberta Lozano CRNA Unavailable Unavailable Allergies, Adverse Reactions, Alerts Substance Reaction Status Criticality titanium Active No Information minocycline Active No Information Medications Medication Instructions Dosage Effective Dates (start - stop) Status Comments Tirosint 100 mcg capsule take 1 capsule by oral route every day 100 MCG - Active atorvastatin 20 mg tablet take 1 tablet by oral route every day 20 MG - Active citalopram 20 mg tablet take 1 tablet by ORAL route every day 20 MG - Active fluticasone propionate 50 mcg/actuation nasal spray,suspension spray 2 spray by Intranasal route every day in each nostril 2 spray - Active Fish Oil 360 mg-1,200 mg capsule,delayed release - Active Foltrate 0.5 mg-1 mg tablet take 1 tablet by oral route every day 1.00 tablet - Active Vitamin D3 10 mcg (400 unit) capsule take 1 by Oral route every day 1 - Active Tums Dual Action (famotidine) 10 mg-800 mg-165 mg chewable tablet as needed - Active cetirizine 10 mg tablet take 1 tablet by oral route every day as needed 10 MG - Active Procedures Procedure Date Colonoscopy Flex; W/remov Les- Level Iv-surg Path Gross/micro Advance Directives Directive Yes / No Effective Date File Name No Information Encounters Encounter Description Practice Location Reason(s) For Visit Diagnoses Date Provider Providers Copied on Encounter [facility], [address] [address], [place], [place], [address], [place] tel:[phone] Tania [facility] No Information 0 Blake Pinzon. [address] [facility] [address], [place], [place], [address] , [place]. tel:[phone] Referring Provider: Abraham Michael MD, [address] [facility] [address], [place], [address] . tel:[phone] [facility], [address] [address], [place], [place], [address], [place] tel:[phone] [facility] Colorectal polyp detected on colonoscopyInternal hemorrhoidsEncounte r for screening for malignant neoplasm of colonOther hemorrhoidsPolyp of colon 0 Alec Rosario. [address] [facility], [place], [place], [address] , [place]. [phone] Referring Provider: Referral Self, USE FOR SELF REFERRALS. [facility], [address] [address], [place], [place], [address], [place] tel:[phone] [facility] No Information 0 Richard Blanton. [address] [facility] [address], [place], [place], [address] , [place]. [phone] Family History Family Member Type Diagnosis Age At Onset Son Problem (finding) Alive and well Brother Problem (finding) Alive and well Father Problem (finding) prostate cancer Mother Problem (finding) Colon polyps Immunizations Vaccine Date Status Comments Afluria Qd administered Note: [facility] bi-directional interface ; Source: Other Registry Influenza administered Note: [facility] bi-d irectional interface ; Source: Other Registry tetanus and diphtheria toxoi ds, adsorbed, preservative free, for adult use (5 Lf of tetanus toxoid and 2 Lf of diphtheria toxoid) administered Note: [facility] bi-direct ional interface ; Source: Other Registry Afluria Qd administered Note: [facility] bi-directional interface ; Source: Other Registry Influenza administered Note: [facility] bi-d irectional interface ; Source: Other Registry Afluria Qd administered Note: [facility] bi-directional interface ; Source: Other Registry Influenza administered Note: [facility] bi-d irectional interface ; Source: Other Registry Influenza administered Note: [facility] bi-d irectional interface ; Source: Other Registry Afluria Qd 8235-1642 administered Note: [facility] bi-directional interface ; Source: Other Registry Influenza, seasonal, injectable administe red Note: [facility] bi- directional interface ; Source: Other Registry Influenza, seasonal, injectable administe red Note: [facility] bi- directional interface ; Source: Other Registry Novel [id number], injectable administered Note: [facility] bi-direct ional interface ; Source: Other Registry Pneumovax 23 administered Note: [facility] bi-d irectional interface ; Source: Other Registry tetanus toxoid, reduced diphtheria toxoid, and acellular pertussis vaccine, adsorbed administered Note: [facility] b i-directional interface ; Source: Other Registry tetanus and diphtheria toxoi ds, adsorbed, preservative free, for adult use (2 Lf of tetanus toxoid and 2 Lf of diphtheria toxoid) administered Note: [facility] bi-direct ional interface ; Source: Other Registry Payers Payer name Insurance type Covered green party ID Authoriza tion(s) No Information Social History Type Description Quantity Date Captured Comments Sex Female Smoking Status No Information Chief Complaint And Reason For Visit No Information Reason For Referral Reason For Referral No Information History Of Present Illness Encounter Date Complaint History Of Prese nt Illness No Information Functional Status Date Functional Assessmen t No Information Instructions Date Instruction Additional Infor mation Colon Cancer Prevention Related to Colorectal polyp detected on colonoscopy Colon Polyps Related to Color ectal polyp detected on colonoscopy Hemorrhoids Related to Color ectal polyp detected on colonoscopy High Fiber Diet Related to Color ectal polyp detected on colonoscopy Assessments Type Assessment Date No Information Patient Care Teams Name Effective Dates (start - stop) Status Members No Information
--- OUTSIDE RECORDS SUMMARY | 2020-01-17 06:31 | XMS_ITS | Continuity of Care Document ---
Author Organization [facility] Address [address] [address] [place] [address] Phone Care Team Providers Care Collection Card Clerk Name Role Phone Alberta Lozano CRNA Unavailable [...] Diagnoses Date Provider Providers Copied on Encounter [facility], [address] [address], [place], [place], [address], [place] tel:[phone] Tania [facility] No Information 0 Blake Pinzon. [address] [facility] [address], [place], [place], [address] , [place]. tel:[phone] Referring Provider: Abraham Michael MD, [address] [facility] [address], [place], [address] . tel:[phone] [facility], [address] [address], [place], [place], [address], [place] tel:[phone] [facility] Colorectal polyp detected on colonoscopyInternal hemorrhoidsEncounte r for screening for malignant neoplasm of colonOther hemorrhoidsPolyp of colon 0 Alec Rosario. [address] [facility], [place], [place], [address] , [place]. [phone] Referring Provider: Referral Self, USE FOR SELF REFERRALS. [facility], [address] [address], [place], [place], [address], [place] tel:[phone] [facility] [address] No Information 0 Richard Blanton. [address] [facility] [address], [place], [place], [address] , [place]. [phone] Family History Family Member Type Diagnosis Age [...] interface ; Source: Other Registry Afluria Qd [id number] administered Note: [facility] bi-directional interface ; Source: Other Registry Influenza, seasonal, injectable administe red Note: [facility] bi- directional interface ; Source: Other Registry Influenza, seasonal, injectable administe red Note: [facility] bi- directional interface ; Source: Other Registry Novel [id number], injectable administered Note: [facility] bi-direct ional interface [...]
--- NOTE | 2024-10-15 19:16 | ED.GENADULT ---
HPI - General Adult General Chief complaint: Unspecified Complaint, Adult Stated complaint: Return from same day Time Seen by Provider: 10/15/24 19:23 History of Present Illness HPI narrative: 54-year-old woman presenting to the emergency department, returning from same day after unsuccessful attempts at intubation. I was asked by the surgeon to facilitate transfer for further cares for ruptured appendicitis with abscess. She has received a dose of Zosyn. Did speak with general surgeon Dr. Marr at [facility] who is accepting for care/transfer. No immediate med-surg bed available and due to prolonged status in same-day were anticipating a discharge direct to [place] ED via private car. I did speak to [place] emergency department Dr. Saucedo who is accepting. On reassessment of Ms. Pham due to some pain concerns, she remains mildly tachycardic but her pain is increasing. Temperature now measured at 99.9. Abdomen is generally more tense. Still without broad peritoneal signs though she is noting much more significant back pain and feeling increasingly bloated and is tympanitic. Continues to guard in the right mid abdomen. She just received another dosing of morphine but it has not seemed to help her pain as it did before. I am ordering for some Dilaudid. Am anticipating ambulance transfer from this ED to [facility]. confirmed that this is still acceptable. Related Data Home Medications ?Medication ?Instructions ?Recorded ?Confirmed carboxymethylcellulose sodium 1 % 1 drp ophthalmic (eye) BID 11/27/22 07/21/24 eye drops (Artificial Tears (carboxymethylcellulose)) diphenhydramine HCl 25 mg tablet 25 mg PO QHS PRN 07/02/23 07/21/24 (Benadryl Allergy) esomeprazole magnesium 20 mg 20 mg PO QDAY 07/02/23 07/21/24 capsule,delayed release albuterol sulfate 90 mcg/actuation 2 puff inhalation Q4-6H PRN 03/23/24 07/21/24 aerosol inhaler prednisone 20 mg tablet 20 mg PO BID PRN 03/23/24 07/21/24 cetirizine 10 mg tablet (Zyrtec) 10 mg PO QDAY 07/21/24 07/21/24 fluticasone propionate 220 1 puff inhalation .1-2 x daily 07/21/24 mcg/actuation HFA aerosol inhaler minoxidil 2.5 mg tablet See Rx Instructions PO .COMPLEX 07/21/24 07/21/24 multivitamin (Multiple Vitamins 1 tab PO QDAY 07/21/24 07/21/24 tablet) naproxen sodium 220 mg tablet 220 mg PO BID 07/21/24 07/21/24 (Aleve) Previous Rx's ?Medication ?Instructions ?Recorded albuterol sulfate 2.5 mg/3 mL 2.5 mg (3 mL) inhalation Q4H PRN 10/16/23 (0.083 %) solution for nebulization shortness of breath or wheezing #75 mL atorvastatin 10 mg tablet See Rx Instructions .Route 06/04/24 .COMPLEX #90 tabs citalopram 20 mg tablet See Rx Instructions .Route 06/04/24 .COMPLEX #90 tabs levothyroxine 112 mcg tablet 112 mcg PO QDAY #90 tabs 06/04/24 montelukast 10 mg tablet 10 mg PO QHS #90 tabs 06/04/24 phentermine 30 mg capsule 30 mg PO QDAY #30 caps 06/04/24 estradiol 1 mg tablet 1 mg PO QDAY #90 tabs 08/04/24 Allergies Allergy/AdvReac Type Severity Reaction Status Date / Time minocycline (From Minocin) Allergy Intermediate Blister Verified 07/21/24 15:13 titanium Allergy Intermediate SOB Verified 07/21/24 15:13 PFSH PFSH Medical History Hyperlipidemia ?E78.5 - Hyperlipidemia, unspecified (ICD-10) Hypothyroidism ?E03.9 - Hypothyroidism, unspecified (ICD-10) Asthma ?J45.909 - Unspecified asthma, uncomplicated (ICD-10) Seasonal allergic rhinitis (04/21/09) ?J30.2 - Other seasonal allergic rhinitis (ICD-10) Depression ?F32.A - Depression, unspecified (ICD-10) Osteoarthritis of right knee ?M17.11 - Unilateral primary osteoarthritis, right knee (ICD-10) Lateral epicondylitis of right elbow ?M77.11 - Lateral epicondylitis, right elbow (ICD-10) Menopausal disorder ?N95.9 - Unspecified menopausal and perimenopausal disorder (ICD-10) Snoring ?R06.83 - Snoring (ICD-10) Hair loss ?L65.9 - Nonscarring hair loss, unspecified (ICD-10) Dry eye syndrome ?H04.129 - Dry eye syndrome of unspecified lacrimal gland (ICD-10) Urinary, incontinence, stress female ?N39.3 - Stress incontinence (female) (male) (ICD-10) Tobacco use (04/21/09) ?Z72.0 - Tobacco use (ICD-10) Surgical History History of hysterectomy ?Z90.710 - Acquired absence of both cervix and uterus (ICD-10) S/P right knee arthroscopy (10/28/23) ?Z98.890 - Other specified postprocedural states (ICD-10) Status post creation of urethral sling by suprapubic approach ?Z98.890 - Other specified postprocedural states (ICD-10) Status post shoulder surgery ?Z98.890 - Other specified postprocedural states (ICD-10) Status post carpal tunnel release (04/21/09) ?Z98.890 - Other specified postprocedural states (ICD-10) Status post abdominal supracervical subtotal hysterectomy (04/21/09) ?Z90.711 - Acquired absence of uterus with remaining cervical stump (ICD-10) History of sinus surgery (04/21/09) ?Z98.890 - Other specified postprocedural states (ICD-10) Family History Father Diabetes Grandmother Diabetes Stroke Heart disease Maternal Grandmother Diabetes Heart disease Brother High blood pressure High cholesterol Aunt Mental illness in member of household 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 What is your current living situation?: I presently have a place to live Problems where you live: no known problems In the past 12 months, utilities in danger of being shut off: no In past 12 months, lack of transportation kept you from medical appts, meetings, work, or getting things needed for daily living: no In the past 12 mos, have been you worried that your food would run out before you had money to buy more?: never true In the past 12 mos, the food you bought just didn't last and you didn't have money to buy more?: never true Smoking Status: Former smoker What tobacco products do you use: cigarettes Smoking quit date/years: <= 15 years ago Do you use any of these nicotine containing products: None Second hand tobacco smoke exposure: No How often do you have a drink containing alcohol: monthly or less How many standard drinks containing alcohol do you have on a typical day: 3 or 4 How often do you have six or more drinks on one occasion: Never AUDIT-C Alcohol total score: 2 Non-prescribed substance use: denies use Caffeine: Yes How often does anyone, including family, friends and others, physically hurt you: never How often does anyone, including family, friends and others, insult or talk down to you: rarely How often does anyone, including family, friends and others, threaten you with harm: never How often does anyone, including family, friends and others, scream or curse at you: never Are you using contraception or practicing any form of control: No service: No Health Related Social Needs: Other personal risk factors, not elsewhere classified (Z91.89) Exam Const: Vital Signs, click to edit/add: Vital Signs - 24 hr 10/15/24 19:20 Temperature 99.9 F H Pulse Rate [Pulse Oximeter] 118 H Respiratory Rate 20 Blood Pressure [Ri ght Upper Arm] 150/84 H Pulse Oximetry 96 Oxygen Delivery Me thod Room Air Course Vital Signs Vital signs: Initial Vital Signs Temperature 99.9 F H 10/15/24 19:20 Temperature Source Temporal Artery Scan 10/15/24 19:20 Pulse Rate 118 H 10/15/24 19:20 Respiratory Rate 20 10/15/24 19:20 Blood Pressure 150/84 H 10/15/24 19:20 Blood Pressure Mean 106 H 10/15/24 19:20 Blood Pressure Position Supine 10/15/24 19:20 Pulse Oximetry 96 10/15/24 19:20 Oxygen Delivery Method Room Air 10/15/24 19:20 Vital Signs Temperature 99.9 F H 10/15/24 19:20 Pulse Rate 118 H 10/15/24 19:20 Respiratory Rate 20 10/15/24 19:20 Blood Pressure 150/84 H 10/15/24 19:20 Pulse Oximetry 96 10/15/24 19:20 Oxygen Delivery Method Room Air 10/15/24 19:20 Temperature 99.9 F H 10/15/24 19:20 Pulse Rate 118 H 10/15/24 19:20 Respiratory Rate 20 10/15/24 19:20 Blood Pressure 150/84 H 10/15/24 19:20 Pulse Oximetry 96 10/15/24 19:20 Oxygen Delivery Method Room Air 10/15/24 19:20 Medications Administered Medications: Generic Name Dose Route Start Last Admin Trade Name Freq PRN Reason Stop Dose Admin Hydromorphone HCl 0.5 mg 10/15/24 19:22 10/15/24 19:28 Hydromorphone 0.5 Mg/0.5 Ml Inj IVP 10/15/24 19:23 0.5 mg ONCE ONE Administration Discharge Plan Discharge Clinical Impression: Acute perforated appendicitis, Abscess, periappendiceal Patient Disposition: [facility] Sanchez Condition: Guarded Prescriptions: No Action Artificial Tears (cmc) 1 % drops 1 drp ophthalmic (eye) BID naproxen sodium [Aleve] 220 mg tablet 220 mg PO BID esomeprazole magnesium 20 mg capsule,delayed release(DR/EC) 20 mg PO QDAY diphenhydramine HCl [Benadryl Allergy] 25 mg tablet 25 mg PO QHS PRN albuterol sulfate 90 mcg/actuation HFA aerosol inhaler 2 puff inhalation Q4-6H PRN prednisone 20 mg tablet 20 mg PO BID PRN multivitamin [Multiple Vitamins] Tablet 1 tab PO QDAY cetirizine [Zyrtec] 10 mg tablet 10 mg PO QDAY minoxidil 2.5 mg tablet See Rx Instructions PO .COMPLEX Rx Instructions: orally; 0.25 tablet bid fluticasone propionate 220 mcg/actuation HFA aerosol inhaler 1 puff inhalation .1-2 x daily albuterol sulfate 2.5 mg /3 mL (0.083 %) solution for nebulization 2.5 mg inhalation Q4H PRN (Reason: shortness of breath or wheezing) Qty: 75 0RF atorvastatin 10 mg tablet See Rx Instructions .ROUTE .COMPLEX Qty: 90 3RF Dose Instruction: TAKE ONE TABLET BY MOUTH AT BEDTIME Rx Instructions: TAKE ONE TABLET BY MOUTH AT BEDTIME citalopram 20 mg tablet See Rx Instructions .ROUTE .COMPLEX Qty: 90 3RF Dose Instruction: TAKE ONE TABLET BY MOUTH EVERY DAY Rx Instructions: TAKE ONE TABLET BY MOUTH EVERY DAY levothyroxine 112 mcg tablet 112 mcg PO QDAY Qty: 90 2RF Patient Comments: TAKE ONE TABLET BY MOUTH EVERY DAY montelukast 10 mg tablet 10 mg PO QHS Qty: 90 3RF phentermine 30 mg capsule 30 mg PO QDAY Qty: 30 2RF Rx Instructions: must administer 2 hours after breakfast estradiol 1 mg tablet 1 mg PO QDAY Qty: 90 2RF Stand Alone Forms: [facility] Info Instructions
[2024-10-15 19:20] VITALS: BP 150/84; PULSE 118; RESP 20; TEMP 37.7; O2SAT 96; BMI 39.2
[2024-10-15] MEDS: ACETAMINOPHEN INJ 1,000 MG/100 ML VIAL 400 MG IVPB (20:19)
== END 2024-10-15 20:24 | disposition short-term general hospital (02) ==
PROVIDERS: Emergency Provider Family Medicine; PCP Family Medicine
DX: K35.33 Acute appendicitis with perforation, localized peritonitis, and gangrene, with abscess (principal); J45.909 Unspecified asthma, uncomplicated
CPT/HCPCS: 96365; 96375; 99284; 99285; J0131; J1171

== ENCOUNTER 2024-10-15 20:10 | Outpatient (CLI) | payer BC, OTHER, SELFPAY | END 2024-10-15 20:11 | disposition home or self-care (01) | LOC: AMB 10-18 13:16 | PROVIDERS: PCP Family Medicine; Visit Provider Student in an Organized Health Care Education/Training Program | DX: K35.33 Acute appendicitis with perforation, localized peritonitis, and gangrene, with abscess (principal) | CPT/HCPCS: A0425; A0434 ==

== ENCOUNTER 2024-12-01 10:42 | Outpatient (CLI) | payer BC, OTHER, SELFPAY | END 2024-12-01 10:43 | disposition home or self-care (01) | LOC: NFLDREF 12-04 16:36 | PROVIDERS: PCP Family Medicine; Referring Provider Family Medicine; Visit Provider Family Medicine | DX: Z01.818 Encounter for other preprocedural examination (principal) | CPT/HCPCS: 80048 ==